=== PATIENT | male | born 1960 | race Caucasian/White ===

== ENCOUNTER 2018-09-02 08:11 | Inpatient (IN) | payer OTHER ==
--- OUTSIDE RECORDS SUMMARY | 2018-09-02 08:19 | XMS REPORT ---
:1960 Author Organization eClinicalWorks Care Team Providers Name Role Phone Nickolas Kothari Provider Role Unavailable Allergies No Known Allergies Problems Problem Type Condition Code Onset Dates Condition Status Problem MGUS (monoclonal gammopathy of D47.2 Active unknown significance) Problem Reflux K21.9 Active Problem Pure hypercholesterolemia E78.00 Active Problem Anxiety F41.9 Active Assessment Pure hypercholesterolemia E78.00 Active Problem Erectile dysfunction F52.21 Active Assessment GERD with esophagitis K21.0 Active Problem Hypertension I10 Active Problem Depression F32.9 Active Problem Seizure R56.9 Active Problem Osteoporosis M81.0 Active Problem Stroke I63.9 Active Assessment Hypertension I10 Active Assessment Depression F32.9 Active Assessment MGUS (monoclonal gammopathy of D47.2 Active unknown significance) Assessment Chronic kidney disease (CKD) stage N18.2 Active G2/A1, mildly decreased glomerular filtration rate (GFR) between 60-89 mL/min/1.73 square meter and albuminuria creatinine ratio less than 30 mg/g Problem Prostate disorder N42.9 Active Problem Stage 2 chronic kidney disease N18.2 Active Assessment Stroke I63.9 Active Problem GERD with esophagitis K21.0 Active Problem Chronic kidney disease (CKD) stage N18.2 Active G2/A1, mildly decreased glomerular filtration rate (GFR) between 60-89 mL/min/1.73 square meter and albuminuria creatinine ratio less than 30 mg/g Medications Medication Code Code Instructions Start End Status Dosage System Date Date Clonazepam [facility] 49114240616 2 MG Orally Active 1 tablet Four times a day Pantoprazole [facility] 60180157156 40 MG Orally May Inactive 1 tablet Sodium Once a day 2017 Simvastatin ND 11881613869 20 MG Orally May Active 1 tablet Once a day 2017 in the evening Probiotic [facility] 03152952916 - Orally Active not defined Esomeprazole ND 74276901484 20 MG Orally September 19, Active 1 capsule Magnesium Once a day 2017 HydrOXYzine HCl [facility] 92726770310 25 MG Orally Active 1 tablet every 8 hrs as needed Aspir-81 [facility] 98268196397 81 MG Orally May Active 1 tablet Once a day 2017 Bismuth [facility] 46009382128 262 MG/15ML July 23Jan 19, Active 30 ml as Subsalicylate Orally 2017 needed times a day Vitamin D3 [facility] 18580773626 1000 UNIT Active 1 tablet Orally Once a day Metoprolol [facility] 24945071135 50 MG Orally Active 1 tablet Tartrate Twice a day with food Baclofen [facility] 09936247232 10 MG Orally Active 1 tablet Three times a with food day or milk Results No Known Results Summary Purpose eClinicalWorks Submission
--- OUTSIDE RECORDS SUMMARY | 2018-09-02 08:19 | XMS REPORT | Continuity of Care Document ---
:1960 Author Organization Interface Problems Problem Status Onset Classification Date Comments Source Date Reported HTN - Hypertension Active Problem 07/08/2018 [facility] Hyperlipidemia Active Problem 07/08/2018 [facility] Pain of right arm Active Problem 07/08/2018 [facility] Paresthesia Active Problem 07/08/2018 [facility] Medications Medication Details Route Status Patient Ordering Order Source Instructions Provider Date Allergies, Adverse Reactions, Alerts Substance Category Reaction Severity Reaction Status Date Comments Source type Reported gabapentin Assertion Drug Active [facility] Dilantin Assertion Drug Active [facility] TEGretol Assertion Drug Active [facility] Immunizations Immunization Date Given Site Status Last Updated Comments Source Results Order Results Value Reference Date Interpretation Comments Source Name Range Vital Signs Vital Sign Value Date Comments Source Encounters Location Location Encounter Encounter Reason Attending ADM DC Status Source Details Type Number For Provider Date Date Visit Outpatient [id number] [facility] 10/01 Active [facility] [place] [facility] [id number] [facility] 11/26 Active [facility] [place] [facility] [id number] [place] 12/19 [facility] [place] [facility] [id number] [place] 12/19 12/19 [facility] [place] Procedures Procedure Code Date Perfomer Comments Source
--- OUTSIDE RECORDS SUMMARY | 2018-09-02 08:19 | XMS REPORT ---
:1960 Author Organization eClinicalWorks Care Team Providers Name Role Phone Nickolas Kothari Provider Role Unavailable Allergies, Adverse Reactions, Alerts Substance Reaction Event Type Tegretol full systemic fungal infection Drug Allergy Neurontin hives,rashes,itching Drug Allergy Methotrexate wiped out blood cells with 1 week Drug Allergy Dilantin hives,rashes,itching Drug Allergy Problems Problem Type Condition Code Onset Dates Condition Status Problem MGUS (monoclonal gammopathy of D47.2 Active unknown significance) Problem Reflux K21.9 Active Problem Pure hypercholesterolemia E78.00 Active Problem Anxiety F41.9 Active Problem Erectile dysfunction F52.21 Active Problem Hypertension I10 Active Problem Depression F32.9 Active Problem Seizure R56.9 Active Problem Osteoporosis M81.0 Active Problem Stroke I63.9 Active Problem Prostate disorder N42.9 Active Problem Stage 2 chronic kidney disease N18.2 Active Problem GERD with esophagitis K21.0 Active Assessment Medicare annual wellness visit, Z00.00 Active initial Problem Chronic kidney disease (CKD) stage N18.2 Active G2/A1, mildly decreased glomerular filtration rate (GFR) between 60-89 mL/min/1.73 square meter and albuminuria creatinine ratio less than 30 mg/g Medications Medication Code Code Instructions Start End Status Dosage System Date Date Baclofen [facility] 63352307852 10 MG Orally Active 1 tablet Three times a with food day or milk Pantoprazole [facility] 22706987800 40 MG Orally May Active 1 tablet Sodium Once a day 2017 Aspir-81 [facility] 82491391064 81 MG Orally May Active 1 tablet Once a day 2017 Vitamin D3 [facility] 66994922269 1000 UNIT Active 1 tablet Orally Once a day Metoprolol [facility] 41245311466 50 MG Orally Active 1 tablet Tartrate Twice a day with food Probiotic [facility] 51455961252 - Orally Active not defined Simvastatin [facility] 98243712607 20 MG Orally May Active 1 tablet Once a day 2017 in the evening Bismuth [facility] 65641448223 262 MG/15ML July 23Jan 19, Active 30 ml as Subsalicylate Orally 2017 needed times a day Clonazepam [facility] 42754516508 2 MG Orally Active 1 tablet Four times a day Results No Known Results Summary Purpose eClinicalWorks Submission
--- OUTSIDE RECORDS SUMMARY | 2018-09-02 08:20 | XMS REPORT ---
[...] Condition Code Onset Dates Condition Status Problem Hypertension I10 Active Problem Stage 2 chronic kidney disease N18.2 Active Problem Prostate disorder N42.9 Active Problem Seizure R56.9 Active Assessment Chronic pain disorder G89.4 Active Problem Reflux K21.9 Active Problem Chronic pain disorder G89.4 Active Problem Chronic kidney disease (CKD) stage N18.2 Active G2/A1, mildly decreased glomerular filtration rate (GFR) between 60-89 mL/min/1.73 square meter and albuminuria creatinine ratio less than 30 mg/g Problem GERD with esophagitis K21.0 Active Problem Pure hypercholesterolemia E78.00 Active Problem MGUS (monoclonal gammopathy of D47.2 Active unknown significance) Assessment Stroke I63.9 Active Assessment Urinary retention R33.9 Active Assessment Prostate disorder N42.9 Active Assessment Chronic kidney disease (CKD) stage N18.2 Active G2/A1, mildly decreased glomerular filtration rate (GFR) between 60-89 mL/min/1.73 square meter and albuminuria creatinine ratio less than 30 mg/g Problem Stroke I63.9 Active Problem Osteoporosis M81.0 Active Problem Erectile dysfunction F52.21 Active Problem Depression F32.9 Active Problem Anxiety F41.9 Active Medications Medication Code Code Instructions Start End Status Dosage System Date Vitamin D3 [facility] 68257330650 1000 UNIT Active 1 tablet Orally Once a day Baclofen ND 33312141729 10 MG Orally Sept Active 1 tablet with Three times a 23, food or milk 2017 Esomeprazole ND 63264415915 20 MG Orally September Active 1 capsule Magnesium Once a day 2017 Bismuth [facility] 55901348537 262 MG/15ML July 23Jan Active 30 ml as Subsalicylate Orally Four 2017 04, needed times a day 2017 Probiotic [facility] 39786034674 - Orally Active not defined Bacitracin [facility] 21210579373 500 UNIT/GM September Active 1 application Externally Once 10, to affected a day 2018 area Oxycodone HCl [facility] 65807909368 10 MG Orally Active 1 tablet as every 6 hrs needed HydrOXYzine HCl [facility] 65584202080 25 MG Orally Active 1 tablet as every 8 hrs needed Metoprolol [facility] 30197360751 25 MG Orally September Active 1 tablet with Tartrate Twice a day , 2017 Aspir-81 [facility] 54596810311 81 MG Orally May Active 1 tablet Once a day 2017 Omeprazole [facility] 25573939227 20 MG Orally September Active 1 tablet Magnesium Once a day 2017 Clonazepam [facility] 52921959998 2 MG Orally Active 1 tablet Four times a day Simvastatin [facility] 11412727799 20 MG Orally May Active 1 tablet in Once a day , the evening 2017 Results No Known Results Summary Purpose eClinicalWorks Submission
--- OUTSIDE RECORDS SUMMARY | 2018-09-02 08:20 | XMS REPORT ---
:1960 Author Organization eClinicalWorks Care Team Providers Name Role Phone Elida Nini Provider Role Unavailable Allergies No Known Allergies Problems Problem Type Condition Code Onset Dates Condition Status Problem Reflux K21.9 Active Problem Depression F32.9 Active Problem Seizure R56.9 Active Problem Chronic pain disorder G89.4 Active Problem Hypertension I10 Active Problem Bladder spasm N32.89 Active Problem Osteoporosis M81.0 Active Problem Stroke I63.9 Active Problem Anxiety F41.9 Active Problem Erectile dysfunction F52.21 Active Problem GERD with esophagitis K21.0 Active Problem Chronic kidney disease (CKD) stage N18.2 Active G2/A1, mildly decreased glomerular filtration rate (GFR) between 60-89 mL/min/1.73 square meter and albuminuria creatinine ratio less than 30 mg/g Problem Prostate disorder N42.9 Active Problem MGUS (monoclonal gammopathy of D47.2 Active unknown significance) Problem Stage 2 chronic kidney disease N18.2 Active Problem Pure hypercholesterolemia E78.00 Active Medications No Known Medications Results No Known Results Summary Purpose [employer] Submission
--- OUTSIDE RECORDS SUMMARY | 2018-09-02 08:20 | XMS REPORT ---
:1960 Author Organization eClinicalWorks Care Team Providers Name Role Phone Nini Marrero Provider Role Unavailable Allergies No Known Allergies Problems Problem Type Condition Code Onset Dates Condition Status Problem Reflux K21.9 Active Problem Depression F32.9 Active Problem Seizure R56.9 Active Problem Chronic pain disorder G89.4 Active Problem Hypertension I10 Active Problem Bladder spasm N32.89 Active Problem Osteoporosis M81.0 Active Problem Stroke I63.9 Active Problem Anxiety F41.9 Active Problem Erectile dysfunction F52.21 Active Assessment Establishing care with new doctor, Z76.89 Active encounter for Problem GERD with esophagitis K21.0 Active Problem Chronic kidney disease (CKD) stage N18.2 Active G2/A1, mildly decreased glomerular filtration rate (GFR) between 60-89 mL/min/1.73 square meter and albuminuria creatinine ratio less than 30 mg/g Problem Prostate disorder N42.9 Active Problem MGUS (monoclonal gammopathy of D47.2 Active unknown significance) Problem Stage 2 chronic kidney disease N18.2 Active Problem Pure hypercholesterolemia E78.00 Active Medications Medication Code System Code Instructions Start End Date Status Dosage Date Baclofen [facility] 05279506920 10 MG Orally Four September 15, Active 1 tablet times a day 2019 with food or milk Results No Known Results Summary Purpose eClinicalWorks Submission
--- OUTSIDE RECORDS SUMMARY | 2018-09-02 08:20 | XMS REPORT ---
:1960 Author Organization eClinicalWorks Care Team Providers Name Role Phone Nini Marrero Provider Role Unavailable Allergies, Adverse Reactions, Alerts [...] with new doctor, Z76.89 Active encounter for Assessment Bladder spasm N32.89 Active Problem GERD with esophagitis K21.0 Active [...] Pure hypercholesterolemia E78.00 Active Medications Medication Code Code Instructions Start End Status Dosage System Date Date Baclofen ND 54184679314 10 MG Orally Dec 29, Active 1 tablet Four times a 2017 with food day or milk Omeprazole ND 50860308787 20 MG Orally October 01, Active 1 tablet Magnesium Once a day 2017 [place]ismuth ND 50159743765 262 MG/15ML July 23, Jan 19, Active 30 ml as Subsalicylate Orally 2017 needed times a day Vitamin D3 ND 17910043702 1000 UNIT Active 1 tablet Orally Once a day Oxycodone HCl ND 70490283294 10 MG Orally Active 1 tablet every 6 hrs as needed Simvastatin ND 25958960157 20 MG Orally Active 1 tablet Once a day in the evening Aspir-81 [facility] 05849741260 81 MG Orally May Active 1 tablet Once a day 2017 Probiotic [facility] 63234292213 - Orally Active not defined Clonazepam [facility] 22094041957 2 MG Orally Active 1 tablet Once a day Metoprolol [facility] 74762896950 25 MG Orally September 21, Active 1 tablet Tartrate Twice a day 2017 with food HydrOXYzine HCl [facility] 67499674597 25 MG Orally Active 1 tablet every 8 hrs as needed Results Name Result Date Reference Range Unit Abnormality Flag PVR ----PVR 0 [id number] Summary Purpose eClinicalWorks Submission
--- OUTSIDE RECORDS SUMMARY | 2018-09-02 08:20 | XMS REPORT ---
[...] Start End Status Dosage System Date Date Bacitracin [facility] 81499397013 500 UNIT/GM September 24, Active 1 application Externally Once 2018 to affected a day area Results No Known Results Summary Purpose eClinicalWorks Submission
--- OUTSIDE RECORDS SUMMARY | 2018-09-02 08:20 | XMS REPORT ---
[...] Medications Results No Known Results Summary Purpose [employer] Submission
--- OUTSIDE RECORDS SUMMARY | 2018-09-02 08:20 | XMS REPORT ---
[...] Medications Medication Code Code Instructions Start End Date Status Dosage System Date Omeprazole [facility] 70279943791 20 MG Orally October 01, Active 1 tablet Magnesium Once a day 2018 Results No Known Results Summary Purpose eClinicalWorks Submission
--- OUTSIDE RECORDS SUMMARY | 2018-09-02 08:20 | XMS REPORT ---
[...] Start End Status Dosage System Date Date Mupirocin [facility] 57083620794 2 % Externally September 21September Active 1 application Three times a 2018 12, to affected day 2018 area Bacitracin ND 56007583661 500 UNIT/GM September 24 1 application Externally Once 2018 to affected a day area Results No Known Results Summary Purpose eClinicalWorks Submission
--- OUTSIDE RECORDS SUMMARY | 2018-09-02 08:20 | XMS REPORT ---
:1960 Author Organization eClinicalWorks Care Team Providers Name Role Phone Antonio, Na Provider Role Unavailable Allergies No Known Allergies [...] Start End Status Dosage System Date Date Omeprazole [facility] 52798348131 40 MG Orally September 21, Active 1 capsule Once a day 2017 Metoprolol ND 62553368174 25 MG Orally September 21, Active 1 tablet with Tartrate Twice a day 2017 food Mupirocin ND 95066122244 2 % Externally September 21September Active 1 application Three times a 2018 , to 2018 area Metoprolol ND 35248531836 50 MG Orally Inactive 1 tablet with Tartrate Twice a day food Results No Known Results Summary Purpose eClinicalWorks Submission
--- OUTSIDE RECORDS SUMMARY | 2018-09-02 08:20 | XMS REPORT ---
[...] creatinine ratio less than 30 mg/g Medications No Known Medications Results No Known Results Summary Purpose [employer] Submission
--- OUTSIDE RECORDS SUMMARY | 2018-09-02 08:21 | XMS REPORT ---
[...] Start End Date Status Dosage System Date Simvastatin [facility] 64992112298 20 MG Orally Active 1 tablet in Once a day the evening Results No Known Results Summary Purpose eClinicalWorks Submission
--- OUTSIDE RECORDS SUMMARY | 2018-09-02 08:21 | XMS REPORT ---
[...] Start End Date Status Dosage System Date Metoprolol [facility] 53353478930 25 MG Orally September 21, Active 1 tablet Tartrate once a day 2017 with food Results No Known Results Summary Purpose eClinicalWorks Submission
--- OUTSIDE RECORDS SUMMARY | 2018-09-02 08:21 | XMS REPORT ---
[...] End Date Status Dosage System Date Metoprolol [facility] 10492732856 25 MG Orally Active 1 tablet Tartrate Twice a day with food Results No Known Results Summary Purpose eClinicalWorks Submission
[2018-09-02 09:02] LABS: Absolute Lymphocytes (CBC) 0.4 K/uL (0.7-4.9); Basophils % 0.1 % (0-1.3); Hematocrit 39.7 % (39.6-49.0); Lymphocytes % 2.5 % (15.3-44.8); MPV 8.6 fL (7.6-11.3); Monocytes % 3.3 % (3.3-12.3); RBC Red Blood Cell Count 4.15 M/uL (4.33-5.43)
[2018-09-02 09:25] LABS: ALT/SGPT 31 U/L (12-78); AST/SGOT 146 U/L (15-37); Albumin 3.9 g/dL (3.4-5.0); Alkaline Phosphatase 61 U/L (45-117); BUN Blood Urea Nitrogen 12 mg/dL (7-18); Bicarbonate 30 mmol/L (21-32); Bilirubin Direct 0.2 mg/dL (0-0.2); Bilirubin Total 0.7 mg/dL (0.2-1.0); Glucose Level 120 mg/dL (74-106); Potassium 4.4 mmol/L (3.5-5.1); Protein, Total 7.5 g/dL (6.4-8.2); Sodium Level 128 mmol/L (136-145)
[2018-09-02 09:31] LABS: Protime INR 0.98
[2018-09-02 09:42] LABS: Platelet Estimate ADEQ; Urine White Blood Cell Casts OK
[2018-09-02 09:43] LABS: Blood Morphology Comment NOT SEEN (NOT SEEN)
[2018-09-02 10:22] LABS: Barbiturates NEGATIVE (NEGATIVE); Benzodiazepines POSITIVE (NEGATIVE); Cocaine NEGATIVE (NEGATIVE); METHAMPHETAM NEGATIVE (NEGATIVE); Methadone NEGATIVE (NEGATIVE); Opiates POSITIVE (NEGATIVE); Phencyclidine NEGATIVE (NEGATIVE); THC Cannibis POSITIVE (NEGATIVE)
[2018-09-02 10:23] LABS: Urine Blood 2+ (NEG); Urine Glucose NEGATIVE (NEG); Urine Protein 1+ (NEG); Urine pH 6.5 (5.0-7.0)
[2018-09-02] MEDS ORDERED: NALOXONE 0.4 MG/ML VIAL ONE ×2 (11:41→14:55)
--- NOTE | 2018-09-02 12:10 | EKG ---
Test Date: 2018-09-02 Test Time: 08:53:54 [employer] Tile Setter: KIRSTIE MEASUREMENT RESULTS: Intervals: Rate: 67 AR: 150 QRSD: 90 QT: 390 QTc: 412 [place]: P: 40 AR: 150 QRS: 34 T: 28 INTERPRETIVE STATEMENTS: Normal sinus rhythm Normal ECG Compared to ECG 02/18/2017 02:27:28 Sinus bradycardia no longer present Prolonged QT interval no longer present Electronically Signed On 09-02-18 12:10:10 CDT by Anil Ramirez
--- NOTE | 2018-09-02 17:15 | EDPHYS ---
Physician Documentation [facility] Name: Tomi Sharp Age: 57 yrs Sex: Male : 1960 Arrival Date: 09/02/2018 Time: 08:14 Bed 7 Private MD: ED Physician Teofilo Cohen HPI: 09/02 08:44 This 57 yrs old Male presents to ER via EMS with complaints of Overdose. kdr 08:44 The patient presents to the emergency department after a known overdose, that was kdr intentional. Context: Method: the patient has a confirmed or suspected ingestion, of narcotics, 50+ Dilaudid (4 mg) at 18:00 yesterday, the OD/poisoning occurred at at home, and was witnessed no one, Psychiatric history: none, Previous OD/poisoning history: It is unknown if the patient has had similar previous episodes. Associated signs and symptoms: The patient has no apparent associated signs or symptoms, Pertinent positives: The pertinet's roommate stated that he was shallow breathing. Severity of symptoms: At their worst the symptoms were mild in the emergency department the symptoms have improved moderately. It is unknown whether or not the patient has had similar symptoms in the past. The patient has been recently seen by a physician: the patient's primary care provider, His pain management MD yesterday who gave him an Rx for 50+ Dilaudid . Historical: - Allergies: 08:33 Dilantin; ss 08:33 METHOTREXATE AND DERIVATIVES; ss 08:33 Neurontin; ss 08:33 Tegretol; ss - PMHx: 08:33 CVA; Hypertension; Seizures; stage 3 renal disease; TIA; ss 08:38 Chronic pain; Enlarged prostate; aa5 - PSHx: 08:33 heart cath; ss - Immunization history:: Adult Immunizations unknown. - Social history:: Smoking status: Patient/guardian denies using tobacco, Patient/guardian denies using alcohol. - Ebola Screening: : Patient denies exposure to infectious person Patient denies travel to an Ebola-affected area in the 21 days before illness onset. ROS: 08:44 Constitutional: Negative for fever, chills, and weight loss, Eyes: Negative for injury, kdr pain, redness, and discharge, ENT: Negative for injury, pain, and discharge, Neck: Negative for injury, pain, and swelling, Cardiovascular: Negative for chest pain, palpitations, and edema, Respiratory: Negative for shortness of breath, cough, wheezing, and pleuritic chest pain, Abdomen/GI: Negative for abdominal pain, nausea, vomiting, diarrhea, and constipation, Back: Negative for injury and pain, : Negative for injury, bleeding, discharge, and swelling, MS/Extremity: Negative for injury and deformity, Skin: Negative for injury, rash, and discoloration, Neuro: Negative for headache, weakness, numbness, tingling, and seizure activity. Allergy/Immunology: Negative for hives, rash, and allergies, Endocrine: Negative for neck swelling, polydipsia, polyuria, polyphagia, and marked weight changes, Hematologic/Lymphatic: Negative for swollen nodes, abnormal bleeding, and unusual bruising. 08:44 Psych: Positive for Ingestion of Dilaudid . Exam: 08:44 Constitutional: This is a well developed, well nourished patient who is awake, alert, kdr and in no acute distress. Head/Face: Normocephalic, atraumatic. Eyes: Pupils equal round and reactive to light, extra-ocular motions intact. Lids and lashes normal. Conjunctiva and sclera are non-icteric and not injected. Cornea within normal limits. Periorbital areas with no swelling, redness, or edema. Neck: Trachea midline, no thyromegaly or masses palpated, and no cervical lymphadenopathy. Supple, full range of motion without nuchal rigidity, or vertebral point tenderness. No Meningismus. Chest/axilla: Normal chest wall appearance and motion. Nontender with no deformity. No lesions are appreciated. Cardiovascular: Regular rate and rhythm with a normal S1 and S2. No gallops, murmurs, or rubs. Normal PMI, no JVD. No pulse deficits. Respiratory: Lungs have equal breath sounds bilaterally, clear to auscultation and percussion. No rales, rhonchi or wheezes noted. No increased work of breathing, no retractions or nasal flaring. Abdomen/GI: Soft, non-tender, with normal bowel sounds. No distension or tympany. No guarding or rebound. No evidence of tenderness throughout. Back: No spinal tenderness. No costovertebral tenderness. Full range of motion. Skin: Warm, dry with normal turgor. Normal color with no rashes, no lesions, and no evidence of cellulitis. MS/ Extremity: Pulses equal, no cyanosis. Neurovascular intact. Full, normal range of motion. Neuro: Awake and alert, GCS 15, oriented to person, place, time, and situation. Cranial nerves II-XII grossly intact. Motor strength 5/5 in all extremities. Sensory grossly intact. Cerebellar exam normal. Normal gait. Psych: Awake, alert, with orientation to person, place and time. Behavior, mood, and affect are within normal limits. 08:44 Psych: Denies SI/HI states he was only trying to get pain relief. Vital Signs: 08:33 BP 91 / 67; Pulse 70; Resp 16; Temp 97.4(O); Pulse Ox 92% on R/A; Weight 81.65 kg; ss Height 5 ft. 11 in. (180.34 cm); Pain 0/10; 08:48 BP 101 / 72; Pulse 66; Resp 14 S; Pulse Ox 97% on 2 lpm NC; Pain 0/10; aa5 09:00 BP 91 / 70; Pulse 67; Resp 16 S; Pulse Ox 96% on 2 lpm NC; aa5 09:15 BP 103 / 67; Pulse 67; Resp 16 S; Pulse Ox 96% on 2 lpm NC; aa5 09:35 BP 102 / 69; Pulse 69; Resp 14 S; Pulse Ox 98% on 2 lpm NC; aa5 09:45 BP 120 / 73; Pulse 71; Resp 16 S; Pulse Ox 97% on 2 lpm NC; aa5 10:00 BP 123 / 78; Pulse 70; Resp 14 S; Pulse Ox 97% on 2 lpm NC; aa5 10:15 BP 127 / 72; Pulse 70; Resp 16 S; Pulse Ox 97% on 2 lpm NC; aa5 10:30 BP 122 / 68; Pulse 70; Resp 12 S; Pulse Ox 97% on 2 lpm NC; aa5 10:45 BP 121 / 77; Pulse 70; Resp 12 S; Pulse Ox 96% on 2 lpm NC; aa5 11:00 BP 117 / 70; Pulse 71; Resp 12 S; Pulse Ox 97% on 2 lpm NC; aa5 11:15 BP 118 / 75; Pulse 71; Resp 10 S; Pulse Ox 97% on 2 lpm NC; aa5 11:23 Pulse 72; Resp 6 S; Pulse Ox 97% on 2 lpm NC; aa5 11:30 BP 131 / 77; Pulse 88; Resp 16 S; Pulse Ox 100% on 2 lpm NC; aa5 11:45 BP 135 / 73; Pulse 84; Resp 16 S; Pulse Ox 97% on 2 lpm NC; aa5 12:00 BP 120 / 83; Pulse 77; Resp 18 S; Temp 98.6(TE); Pulse Ox 97% on 2 lpm NC; aa5 12:15 BP 111 / 70; Pulse 73; Resp 16 S; Pulse Ox 97% on 2 lpm NC; aa5 12:30 BP 117 / 67; Pulse 78; Resp 16 S; Pulse Ox 96% on 2 lpm NC; aa5 12:45 BP 111 / 64; Pulse 72; Resp 16 S; Pulse Ox 97% on R/A; aa5 13:00 BP 108 / 64; Pulse 71; Resp 16 S; Pulse Ox 97% on 2 lpm NC; aa5 13:15 BP 104 / 62; Pulse 71; Resp 14 S; Pulse Ox 96% on 2 lpm NC; aa5 13:30 BP 112 / 73; Pulse 69; Resp 14 S; Pulse Ox 96% on 2 lpm NC; aa5 13:45 BP 90 / 63; Pulse 66; Resp 14 S; Pulse Ox 96% on 2 lpm NC; aa5 14:00 BP 97 / 64; Pulse 66; Resp 16 S; Pulse Ox 94% on 2 lpm NC; aa5 14:40 BP 97 / 63; Pulse 68; Resp 6 S; Pulse Ox 90% on 2 lpm NC; aa5 14:42 BP 116 / 73; Pulse 70; Resp 14 S; Pulse Ox 97% on 2 lpm NC; aa5 15:49 BP 102 / 69; Pulse 68; Resp 8 S; Pulse Ox 92% on 2 lpm NC; aa5 15:52 BP 111 / 63; Pulse 68; Resp 12 S; Pulse Ox 96% on 2 lpm NC; aa5 16:15 BP 96 / 68; Pulse 66; Resp 10 S; Pulse Ox 93% on 2 lpm NC; aa5 16:15 Resp 16 S; Pulse Ox 97% on 2 lpm NC; aa5 16:45 BP 120 / 66; Pulse 69; Resp 14 S; Pulse Ox 97% on 2 lpm NC; aa5 17:05 Pulse Ox 85% on R/A; aa5 17:05 Pulse Ox 95% on 2 lpm NC; aa5 17:15 BP 110 / 73; Pulse 72; Resp 16 S; Temp 98.9(TE); Pulse Ox 99% on 2 lpm NC; aa5 17:30 BP 119 / 59; Pulse 68; Resp 16 S; Pulse Ox 96% on 2 lpm NC; aa5 17:55 BP 98 / 68; Pulse 63; Resp 16 S; Pulse Ox 97% on 2 lpm NC; aa5 18:30 BP 107 / 65; Pulse 65; Resp 16 S; Pulse Ox 96% on 2 lpm NC; Pain 0/10; aa5 08:33 Body Mass Index 25.10 (81.65 kg, 180.34 cm) ss MDM: 08:44 Data reviewed: vital signs, nurses notes, lab test result(s). Counseling: I had a kdr detailed discussion with the patient and/or guardian regarding: the historical points, exam findings, and any diagnostic results supporting the discharge/admit diagnosis, lab results, the need for outpatient follow up. 17:14 Patient medically screened. kdr 09/02 08:25 Order name: Acetaminophen kdr 09/02 08:25 Order name: Basic Metabolic Panel; Complete Time: 10:18 kdr 09/02 08:25 Order name: CBC with Diff; Complete Time: 10:18 kdr 09/02 08:25 Order name: ETOH Level; Complete Time: 10:18 kdr 09/02 08:25 Order name: Hepatic Function; Complete Time: 10:18 kdr 09/02 08:25 Order name: PT-INR; Complete Time: 10:18 kdr 09/02 08:25 Order name: Ptt, Activated; Complete Time: 10:18 kdr 09/02 08:25 Order name: Salicylate; Complete Time: 10:18 kdr 09/02 08:25 Order name: Urine Drug Screen; Complete Time: 10:56 kdr 09/02 08:27 Order name: Acetaminophen Level; Complete Time: 10:18 EDMS 09/02 09:22 Order name: CBC Smear Scan; Complete Time: 10:18 EDMS 09/02 09:42 Order name: Urine Dipstick--Ancillary (enter results); Complete Time: 10:56 bd 09/02 17:17 Order name: CBC with Diff kdr 06/18 17:17 Order name: Chem 7 kdr 09/02 08:25 Order name: EKG; Complete Time: 08:27 kdr 09/02 08:25 Order name: EKG - Nurse/Tech; Complete Time: 08:53 kdr 09/02 08:25 Order name: IV Saline Lock; Complete Time: 08:53 kdr 09/02 08:25 Order name: Labs collected and sent; Complete Time: 08:53 kdr 09/02 08:25 Order name: Urine Dipstick-Ancillary (obtain specimen); Complete Time: 09:36 kdr 09/02 17:16 Order name: CT Head Brain wo Cont; Complete Time: 18:23 kdr 09/02 17:18 Order name: CXR XRAY; Complete Time: 18:23 kdr 09/02 18:22 Order name: Blood Culture Adult (2) aa5 09/02 18:27 Order name: Procalcitonin kdr 09/02 18:27 Order name: Lactate kdr Administered Medications: 11:27 Drug: NARcan 0.2 mg Route: IVP; Site: right antecubital; aa5 11:27 Follow up: VO received at 1126, not 1129. aa5 11:29 Follow up: Response: No adverse reaction; See nurse's noted for details aa5 11:27 Drug: NS 0.9% 500 ml Route: IV; Rate: bolus; Site: right antecubital; aa5 12:00 Follow up: IV Status: Completed infusion; IV Intake: 500ml aa5 11:29 Drug: NARcan 0.2 mg Route: IVP; Site: right antecubital; aa5 11:30 Follow up: Response: No adverse reaction; See nurse's notes to see details aa5 14:40 Drug: NARcan 0.2 mg Route: IVP; Site: right antecubital; aa5 14:42 Follow up: Response: No adverse reaction; Marked relief of symptoms aa5 15:49 Drug: NARcan 0.2 mg Route: IVP; Site: right antecubital; aa5 15:52 Follow up: Response: No adverse reaction; Marked relief of symptoms aa5 18:35 Drug: Rocephin 1 grams Route: IV; Rate: calculated rate; Site: right antecubital; ss 18:45 Follow up: Response: No adverse reaction aa5 Disposition: 06/18/19 17:14 Hospitalization ordered by Cheryl Green for Inpatient Admission. Preliminary diagnosis is Overdose. - Bed requested for Intensive Care Unit. - Status is Inpatient Admission. aa5 - Condition is Serious. - Problem is new. - Symptoms are unchanged. UTI on Admission? No Signatures: Dispatcher [employer] EDMS Teofilo Cohen MD MD [facility] Cristina Gayle RN RN aa5 Renetta Cotton RN RN ss Corrections: (The following items were deleted from the chart) 17:55 17:14 Hospitalization Ordered by Cheryl Green MD for Inpatient Admission. Preliminary ss diagnosis is Overdose. Bed requested for Intensive Care Unit. Status is Inpatient Admission. Condition is Serious. Problem is new. Symptoms are unchanged. UTI on Admission? No. kdr 18:57 17:55 09/02/2018 17:14 Hospitalization Ordered by Cheryl Green MD for Inpatient aa5 Admission. Preliminary diagnosis is Overdose. Bed requested for Intensive Care Unit. Status is Inpatient Admission. Condition is Serious. Problem is new. Symptoms are unchanged. UTI on Admission? No. ss
--- NOTE | 2018-09-02 17:15 | ER ---
Nurse's Notes [facility] Name: Tomi Sharp Age: 57 yrs Sex: Male : 1960 Arrival Date: 09/02/2018 Time: 08:14 Bed 7 Private MD: Diagnosis: Overdose Presentation: 09/02 08:26 Presenting complaint: EMS states: Room mate called 911 this morning because patient was ss difficult to arouse and stated that he was, "barely breathing." Pt reportedly took 54 tablets of Dilaudid 4 mg at 1800 yesterday evening. Pt states, "I didn't intentionally try to hurt my self, I'm not suicidal. I can't give you a good reason, but I was just fed up with all the pain I was in and wanted it to go away.". Transition of care: patient was not received from another setting of care. Onset of symptoms was September 01, 2018. Risk Assessment: Do you want to hurt yourself or someone else? Patient reports no desire to harm self or others. Initial Sepsis Screen: Does the patient meet any 2 criteria? No. Patient's initial sepsis screen is negative. Does the patient have a suspected source of infection? No. Patient's initial sepsis screen is negative. Care prior to arrival: Medication(s) given: zofran 4 mg, IV initiated. 20 GA, in the right antecubital area. 08:26 Method Of Arrival: EMS: [facility] 08:26 Acuity: PADMINI 2 ss Historical: - Allergies: 08:33 Dilantin; ss 08:33 METHOTREXATE AND DERIVATIVES; ss 08:33 Neurontin; ss 08:33 Tegretol; ss - PMHx: 08:33 CVA; Hypertension; Seizures; stage 3 renal disease; TIA; ss 08:38 Chronic pain; Enlarged prostate; aa5 - PSHx: 08:33 heart cath; ss - Immunization history:: Adult Immunizations unknown. - Social history:: Smoking status: Patient/guardian denies using tobacco, Patient/guardian denies using alcohol. - Ebola Screening: : Patient denies exposure to infectious person Patient denies travel to an Ebola-affected area in the 21 days before illness onset. Screenin:38 Abuse screen: Denies threats or abuse. Nutritional screening: No deficits noted. aa5 Tuberculosis screening: No symptoms or risk factors identified. Fall Risk No fall in past 12 months (0 pts). Secondary diagnosis (15 points) CVA, IV access (20 points). Ambulatory Aid- None/Bed Rest/Nurse Assist (0 pts). Gait- Normal/Bed Rest/Wheelchair (0 pts) Mental Status- Oriented to own ability (0 pts). Total Sánchez Fall Scale indicates Low Risk Score (25-44 pts). Fall prevention measures have been instituted. Side Rails Up X 2 Placed close to Nursing Station. Assessment: 08:38 General: Appears comfortable, Behavior is calm, cooperative. Pain: Complains of pain in aa5 epigastric area Pain currently is 0 out of 10 on a pain scale. Pain began years ago, is chronic. Neuro: Level of Consciousness is awake, alert, obeys commands, Oriented to person, place, time, situation, Choir Accompanist are equal bilaterally Moves all extremities. Speech is normal, Facial symmetry appears normal, Pupils are PERRLA. Cardiovascular: Heart tones S1 S2 present Rhythm is regular. Respiratory: Airway is patent Respiratory effort is even, unlabored, Respiratory pattern is regular, symmetrical, Breath sounds are clear bilaterally. GI: Abdomen is round non-distended, Bowel sounds present X 4 quads. Abd is soft and non tender X 4 quads. Reports nausea, Reports vomiting this morning. : Reports difficulty urinating, pt states "I have prostate problems so I always have trouble peeing". EENT: No signs and/or symptoms were reported regarding the EENT system. Derm: Skin is pink, warm \\T\\ dry. Musculoskeletal: Range of motion: intact in all extremities. 08:50 Reassessment: Spoke to poison control (Sherrie in [facility]), Case # [id number], aa5 Recommendations are as follow: Monitor for HRIS COORDINATOR depression, bradycardia, seizures, and O2 sat, administer IV fluids appropriately considering Renal disease, complete EKG, basic and toxic labs, administer supportive care, and consider administering Narcan for severe HRIS COORDINATOR depression. Recommended observation time is 24 hrs post ingestion (observe/monitor today until 1800). Dr. Cohen was notified of recommendations. . 08:50 Reassessment: Seizure precautions initiated. Pt states "I haven't had a seizure in aa5 years and I don't even take medicine for it". Pt notified of need for monitoring for seizures and initiating precautions, pt verbalized understanding. . 11:23 Reassessment: Pt is unresponsive to painful, RR 6 with snoring respirations. Skin is aa5 pink/warm/dry, O2 sat 97% [address] Cohen was notified and Dr. Cohen to bedside. . 11:29 Reassessment: Pt opened eyes after Narcan administration, pt remains drowsy, and aa5 incomprehen[address] speech noted. Dr[address] Cohen remains at bedside. . 11:30 Reassessment: Pt opened eyes and A\\T\\O x 4 after 2 nd administration of Narcan. Equal aa5 unlabored respirations, skin is pink/warm/dry. . 11:40 Reassessment: Patient is alert, oriented x 3, equal unlabored respirations, skin aa5 warm/dry/pink. Pt sitting up in bed . 12:00 Reassessment: Patient is alert, oriented x 3, equal unlabored respirations, skin aa5 warm/dry/pink. Pt sitting up in bed, offered lunch, pt states "I am not hungry" . 12:00 Reassessment: Pt notified of POC and notified of need for monitoring for a few hours aa5 per MD. Pt verbalized understanding. . 12:15 Reassessment: Pt resting in bed with eyes closed, pt easy to awaken to verbal stimuli. aa5 Pt is alert and oriented x 4. States no concerns at this time. . 12:30 Reassessment: Pt resting in bed with eyes closed, respirations even and unlabored, skin aa5 is pink/warm/dry . 13:00 Reassessment: Pt resting in bed with eyes closed, respirations even/unlabored, skin is aa5 pink/warm/dry . 13:30 Reassessment: Pt resting in bed with eyes closed, pt easy to awaken to verbal stimuli, aa5 pt is A\\T\\O x 4, equal unlabored, respirations, skin is pink/warm/dry. Remains sinus rhythm on monitor. Pt states no complaints at this time. Offered lunch, Pt states he doesn't want to eat.. 14:00 Reassessment: Pt resting in bed with eyes closed, respirations even and unlabored, skin aa5 is pink/warm/dry. . 14:40 Reassessment: Pt resting in bed with eyes closed, snoring respirations, RR 6, O2 sat aa5 90% 2 L NC, skin is pink/warm/dry. Pt difficult to arouse, pt opens eyes to painful stimuli. Dr. Cohen notified (see MAR). 14:42 Reassessment: Reassessment: Pt awake and A\\T\\O x 4, equal unlabored respirations, skin is aa5 pink/warm/dry. O2 sat now 97% 2 L NC, RR14. 15:00 Reassessment: Pt easy to awaken to verbal stimuli. Equal unlabored respirations, skin aa5 is pink/warm/dry. Pt is A\\T\\O x 4. 15:49 Reassessment: Pt resting with eyes closed, snoring respirations, RR 8, O2 sat 92% 2 L aa5 NC, pt opens eyes to verbal stimuli, pt drowsy. Dr. Cohen notified (see MAR). 16:15 Reassessment: Pt resting in bed with eyes closed, snoring respirations, RR 10, O2 sat aa5 93% 2 L NC. Pt easy to awaken to verbal stimuli. Pt now A\\T\\O x 4, pt instructed to take deep breaths and O2 sat increased to 97% 2 L NC, RR 16, equal unlabored respirations, skin is pink/warm/dry. . 17:00 Reassessment: Dr. Cohen states to attempt to ambulate pt. . aa5 17:05 Reassessment: Assisted pt to sit up in bed, O2 via NC dc'd, pt's O2 sat noted to be 85 aa5 % RA. Pt was placed back in bed, O2 being administered via NC 2 L, O2 sat increased to 95%. Bed in low position, side rails x 2, call mendieta within reach. Dr. Cohen was notified of findings and inability to ambulate pt. . 17:05 Respiratory: Breath sounds are clear bilaterally. aa5 17:25 Reassessment: Patient is alert, oriented x 3, equal unlabored respirations, skin aa5 warm/dry/pink. Dr. Green (Hospitalist) at bedside. 17:55 Reassessment: Pt resting in bed with eyes closed, pt easy to awaken to verbal stimuli. aa5 A\\T\\O x 4, Equal unlabored respirations, skin is pink/warm/dry.. 18:35 Reassessment: Patient is alert, oriented x 3, equal unlabored respirations, skin aa5 warm/dry/pink. Patient denies pain at this time. 18:35 Cardiovascular: Rhythm is sinus rhythm. aa5 Vital Signs: 08:33 BP 91 / 67; Pulse 70; Resp 16; Temp 97.4(O); Pulse Ox 92% on R/A; Weight 81.65 kg; ss Height 5 ft. 11 in. (180.34 cm); Pain 0/10; 08:48 BP 101 / 72; Pulse 66; Resp 14 S; Pulse Ox 97% on 2 lpm NC; Pain 0/10; aa5 09:00 BP 91 / 70; Pulse 67; Resp 16 S; Pulse Ox 96% on 2 lpm NC; aa5 09:15 BP 103 / 67; Pulse 67; Resp 16 S; Pulse Ox 96% on 2 lpm NC; aa5 09:35 BP 102 / 69; Pulse 69; Resp 14 S; Pulse Ox 98% on 2 lpm NC; aa5 09:45 BP 120 / 73; Pulse 71; Resp 16 S; Pulse Ox 97% on 2 lpm NC; aa5 10:00 BP 123 / 78; Pulse 70; Resp 14 S; Pulse Ox 97% on 2 lpm NC; aa5 10:15 BP 127 / 72; Pulse 70; Resp 16 S; Pulse Ox 97% on 2 lpm NC; aa5 10:30 BP 122 / 68; Pulse 70; Resp 12 S; Pulse Ox 97% on 2 lpm NC; aa5 10:45 BP 121 / 77; Pulse 70; Resp 12 S; Pulse Ox 96% on 2 lpm NC; aa5 11:00 BP 117 / 70; Pulse 71; Resp 12 S; Pulse Ox 97% on 2 lpm NC; aa5 11:15 BP 118 / 75; Pulse 71; Resp 10 S; Pulse Ox 97% on 2 lpm NC; aa5 11:23 Pulse 72; Resp 6 S; Pulse Ox 97% on 2 lpm NC; aa5 11:30 BP 131 / 77; Pulse 88; Resp 16 S; Pulse Ox 100% on 2 lpm NC; aa5 11:45 BP 135 / 73; Pulse 84; Resp 16 S; Pulse Ox 97% on 2 lpm NC; aa5 12:00 BP 120 / 83; Pulse 77; Resp 18 S; Temp 98.6(TE); Pulse Ox 97% on 2 lpm NC; aa5 12:15 BP 111 / 70; Pulse 73; Resp 16 S; Pulse Ox 97% on 2 lpm NC; aa5 12:30 BP 117 / 67; Pulse 78; Resp 16 S; Pulse Ox 96% on 2 lpm NC; aa5 12:45 BP 111 / 64; Pulse 72; Resp 16 S; Pulse Ox 97% on R/A; aa5 13:00 BP 108 / 64; Pulse 71; Resp 16 S; Pulse Ox 97% on 2 lpm NC; aa5 13:15 BP 104 / 62; Pulse 71; Resp 14 S; Pulse Ox 96% on 2 lpm NC; aa5 13:30 BP 112 / 73; Pulse 69; Resp 14 S; Pulse Ox 96% on 2 lpm NC; aa5 13:45 BP 90 / 63; Pulse 66; Resp 14 S; Pulse Ox 96% on 2 lpm NC; aa5 14:00 BP 97 / 64; Pulse 66; Resp 16 S; Pulse Ox 94% on 2 lpm NC; aa5 14:40 BP 97 / 63; Pulse 68; Resp 6 S; Pulse Ox 90% on 2 lpm NC; aa5 14:42 BP 116 / 73; Pulse 70; Resp 14 S; Pulse Ox 97% on 2 lpm NC; aa5 15:49 BP 102 / 69; Pulse 68; Resp 8 S; Pulse Ox 92% on 2 lpm NC; aa5 15:52 BP 111 / 63; Pulse 68; Resp 12 S; Pulse Ox 96% on 2 lpm NC; aa5 16:15 BP 96 / 68; Pulse 66; Resp 10 S; Pulse Ox 93% on 2 lpm NC; aa5 16:15 Resp 16 S; Pulse Ox 97% on 2 lpm NC; aa5 16:45 BP 120 / 66; Pulse 69; Resp 14 S; Pulse Ox 97% on 2 lpm NC; aa5 17:05 Pulse Ox 85% on R/A; aa5 17:05 Pulse Ox 95% on 2 lpm NC; aa5 17:15 BP 110 / 73; Pulse 72; Resp 16 S; Temp 98.9(TE); Pulse Ox 99% on 2 lpm NC; aa5 17:30 BP 119 / 59; Pulse 68; Resp 16 S; Pulse Ox 96% on 2 lpm NC; aa5 17:55 BP 98 / 68; Pulse 63; Resp 16 S; Pulse Ox 97% on 2 lpm NC; aa5 18:30 BP 107 / 65; Pulse 65; Resp 16 S; Pulse Ox 96% on 2 lpm NC; Pain 0/10; aa5 08:33 Body Mass Index 25.10 (81.65 kg, 180.34 cm) ED Course: 08:14 Patient arrived in ED. bd 08:25 Teofilo Cohen MD is Attending Physician. kdr 08:32 Triage completed. ss 08:33 Ana Cristina Gayle, ZAK is Primary Nurse. aa5 08:33 Arm band placed on right wrist. ss 08:38 Patient has correct armband on for positive identification. Placed in gown. Bed in low aa5 position. Call light in reach. Side rails up X2. cardiac monitor technician on. Pulse ox on. NIBP on. 09:26 EKG done, by photonics engineering technician. reviewed by Teofilo Cohen MD. dt2 09:36 Maintain EMS IV. Dressing intact. Good blood return noted. Site clean \\T\\ dry. Gauge \\T\\ ms site: 20 right ac. IV is intact, with fluids infusing freely, Flushed. 09:37 Straight cath inserted, using sterile technique, 16 Fr. Specimen obtained. Returned ms clear yellow urine. Patient tolerated well. 14:07 No provider procedures requiring assistance completed. aa5 17:10 Cheryl Green MD is Hospitalizing Provider. kdr 17:45 CT Head Brain wo Cont In Process Unspecified. EDMS 17:46 CXR XRAY In Process Unspecified. EDMS 18:25 First set of blood cultures drawn by me. Inserted saline lock: 20 gauge in right hand, aa5 using aseptic technique. 18:35 Second set of blood cultures drawn by me. Inserted saline lock: 20 gauge in left wrist, aa5 using aseptic technique. 18:38 Patient admitted, IV remains in place. aa5 Administered Medications: 11:27 Drug: NARcan 0.2 mg Route: IVP; Site: right antecubital; aa5 11:27 Follow up: VO received at 1126, not 1129. aa5 11:29 Follow up: Response: No adverse reaction; See nurse's noted for details aa5 11:27 Drug: NS 0.9% 500 ml Route: IV; Rate: bolus; Site: right antecubital; aa5 12:00 Follow up: IV Status: Completed infusion; IV Intake: 500ml aa5 11:29 Drug: NARcan 0.2 mg Route: IVP; Site: right antecubital; aa5 11:30 Follow up: Response: No adverse reaction; See nurse's notes to see details aa5 14:40 Drug: NARcan 0.2 mg Route: IVP; Site: right antecubital; aa5 14:42 Follow up: Response: No adverse reaction; Marked relief of symptoms aa5 15:49 Drug: NARcan 0.2 mg Route: IVP; Site: right antecubital; aa5 15:52 Follow up: Response: No adverse reaction; Marked relief of symptoms aa5 18:35 Drug: Rocephin 1 grams Route: IV; Rate: calculated rate; Site: right antecubital; ss 18:45 Follow up: Response: No adverse reaction aa5 Intake: 12:00 IV: 500ml; Total: 500ml. aa5 Outcome: 17:14 Decision to Hospitalize by Provider. kdr 18:35 Admitted to ICU accompanied by nurse, accompanied by tech, via stretcher, with oxygen, aa5 on monitor, with chart, Report called to ZAK Cazares (at 1820) 18:35 Condition: stable 18:35 Instructed on the need for admit, Demonstrated understanding of instructions. 18:38 Patient left the ED. aa5 Signatures: Dispatcher [employer] EDMS Astrid Turner Kevin, MD MD kdr Solis, Maria ms Calderon, Audri, RN RN aa5 Renetta Cotton RN RN ss Teague, Danielle dt2 Corrections: (The following items were deleted from the chart) 10:38 08:26 Care prior to arrival: None. ss ss 11:31 08:26 Acuity: PADMINI 3 ss ss 16:35 15:49 Reassessment: Pt resting with eyes closed, RR 8, O2 sat 92% 2 L NC, pt opens eyes aa5 to verbal stimuli, pt drowsy. . aa5 16:37 15:49 Reassessment: Pt resting with eyes closed, RR 8, O2 sat 92% 2 L NC, pt opens eyes aa5 to verbal stimuli, pt drowsy. Dr. Cohen notified (see MAR). aa5 18:03 17:55 Reassessment: Pt resting in bed with eyes closed, pt easy to awaken to verbal aa5 stimuli. Equal unlabored respirations, skin is pink/warm/dry. . aa5 19:14 18:57 Patient left the ED. aa5 aa5 19:16 08:38 Respiratory: Airway is patent Respiratory effort is even, unlabored, Respiratory aa5 pattern is regular, symmetrical, aa5
--- NOTE | 2018-09-02 17:52 | P.HP ---
Certification for Inpatient Patient admitted to: Inpatient With expected LOS: >2 Midnights Practitioner: I am a practitioner with admitting privileges, knowledge of patient current condition, hospital course, and medical plan of care. Services: Services provided to patient in accordance with Admission requirements found in Title 42 Section 412.3 of the Code of Federal Regulations Patient History Date of Service: 09/02/18 Reason for admission: AMS, overdose History of Present Illness: This is a 57 yr old male with prior history of CVA, seizures and HTN who was brought in by EMS for AMS due to overdose of dilaudid. Patient unable to really give me history due to confusion? unsure of baseline but he kept on repeating himself and was not able to remember conversation. Patient with tangential conversation. Per chart review and ER documentation, patient took #54 pills of Dilaudid last night at 18:00. They stated that it was unintentional because he was tired of dealing with the pain. He was brought to the ED and per poison control, he should be watched until 6 pm. Even after fluids and narcan x 4, patient continued to have some apneic episodes and became hard to arouse. This improved with narcan but not resolve completely. When he is awake, he is AAOx4 but still seems confused on what really happened and why he is in the hospital. At the time of my exam, patient was AAOx4 but confused as noted above. He was hemodynamically stable He will need ICU admission due to his apneic/unresponsive episodes that are requiring narcan. Allergies gabapentin [From Neurontin] Allergy (Severe, Verified 01/07/14 22:23) Itching/Hives/Rash phenytoin sodium [From Dilantin] Allergy (Severe, Verified 01/07/14 22:23) Itching/Hives/Rash phenytoin sodium extended [From Dilantin] Allergy (Severe, Verified 01/07/14 22: 23) Itching/Hives/Rash carbamazepine [From Tegretol] Adverse Reaction (Severe, Verified 01/07/14 22:23) Itching clonazepam [From Klonopin] Adverse Reaction (Verified 02/24/17 20:37) Anaphylaxis METHOTREXATE Allergy (Intermediate, Uncoded 01/30/17 17:51) Unknown Dilantin Infatabs Allergy (Uncoded 09/16/14 14:05) Unknown METHO Allergy (Uncoded 09/25/16 19:02) Unknown METHOTREXATE A Allergy (Uncoded 02/10/17 04:21) Unknown METHOTREXATE AND Allergy (Uncoded 02/18/17 04:53) Unknown Home Medications: Tamsulosin HCl [Flomax] 1 tab PO DAILY PRN 01/08/14 Aspirin [Aspirin EC 81 MG] 81 mg PO DAILY #30 tablet. 01/31/17 Atorvastatin Calcium [Lipitor] 40 mg PO BEDTIME #30 tab 01/31/17 hydrOXYzine pamoate [Hydroxyzine Pamoate] 25 mg PO BID PRN 02/25/17 Metoprolol Succinate [Toprol Xl*] 150 mg PO BID #60 tab 02/26/17 Spironolactone [Aldactone*] 25 mg PO BID #60 tab 02/26/17 Valsartan [Diovan*] 160 mg PO BID #60 tab 02/26/17 metroNIDAZOLE [Flagyl*] 500 mg PO Q8H #63 tablet 02/26/17 - Past Medical/Surgical History Diabetic: No -: Urinary retention -: Hypertension -: Seizures "in my 20s. I had TIAs also." -: TIA -: CVA "in my 20s" -: Sinus Surgery -: Oral Surgery - Family History Father -: Heart disease, Hypertension, Lung disease - Social History Alcohol use: No CD- Drugs: Yes Caffeine use: No Review of Systems 10-point ROS is otherwise unremarkable Physical Examination - Physical Exam General: In no apparent distress, Oriented x3, Confused HEENT: Atraumatic, PERRLA, Mucous membr. moist/pink, EOMI, Sclerae nonicteric Neck: Supple, 2+ carotid pulse no bruit, No LAD, Without JVD or thyroid abnormality Respiratory: Clear to auscultation bilaterally, Normal air movement Cardiovascular: Regular rate/rhythm, Normal S1 S2 Gastrointestinal: Normal bowel sounds, No tenderness Musculoskeletal: No tenderness Integumentary: No rashes Neurological: Normal speech, Normal strength at 5/5 x4 extr, Normal tone, Normal affect - Studies Laboratory Data (last 24 hrs) 09/02/18 08:45: PT 11.6, INR 0.98, APTT 26.6 09/02/18 08:45: WBC 17.6 H, Hgb 13.1 L, Hct 39.7, Plt Count 368 09/02/18 08:45: Sodium 128 L, Potassium 4.4, BUN 12, Creatinine 1.63 H, Glucose 120 H, Total Bilirubin 0.7, AST 146 H, ALT 31, Alkaline Phosphatase 61 Assessment and Plan - Problems (Diagnosis) (1) Drug overdose Current Visit: Yes Status: Acute (2) Altered mental status Onset Date: 01/08/14 Current Visit: No Status: Acute (3) Seizure disorder Current Visit: No Status: Acute (4) CVA (cerebral vascular accident) Onset Date: 02/18/17 Current Visit: No Status: Acute (5) Encephalopathy Current Visit: Yes Status: Acute (6) Leucocytosis Current Visit: Yes Status: Acute (7) CLEMENCIA (acute kidney injury) Current Visit: Yes Status: Acute (8) Hyponatremia Current Visit: Yes Status: Acute (9) Hypertension Current Visit: No Status: Acute Qualifiers: Hypertension type: essential hypertension Qualified Code(s): I10 - Essential (primary) hypertension (10) Obesity (BMI 30.0-34.9) Current Visit: No Status: Acute - Plan Admit to ICU for 1-on-1 monitoring due to apneic episodes. Narcan as needed IVF, maintenance dosing. Hold pain medications at this time. Will need to contact Girlfriend (Darlene Hernandez) to get more information. CT head and CXR pending. Leuckocytosis, could be secondary to toxic vs metabollic vs infectious. Workup pending. Will restart home medications as tolerated. DVT prophylaxis: Lovenox GI prophylaxis: None Diet: NPO, d/t AMS Disposition: Pending symptomatic improvement. Possible discharge in the next 24- 48 hrs depending on clinical improvement. - Advance Directives Does patient have a Living Will: No Does patient have a Durable POA for Healthcare: No Time Spent Managing Pts Care (In Minutes): 55
--- NOTE | 2018-09-02 17:54 | RAD REPORT ---
EXAM DESCRIPTION: CT - Head Brain Wo Cont - 09/02/2018 5:44 pm CLINICAL HISTORY: CONFUSED Headache, drowsiness COMPARISON: <Comparisons> TECHNIQUE: All CT scans are performed using dose optimization technique as appropriate and may inclu de automated exposure control or mA/KV adjustment according to patient size. FINDINGS: No intracranial hemorrhage, hydrocephalus or extra-axial fluid collection.No areas of brai n edema or evidence of midline shift. The paranasal sinuses and mastoids are clear. The calvarium is intact. IMPRESSION: No acute intracranial abnormality.
--- NOTE | 2018-09-02 17:56 | RAD REPORT ---
EXAM DESCRIPTION: RAD - Chest Single View - 09/02/2018 5:48 pm CLINICAL HISTORY: CHEST PAIN Chest pain. COMPARISON: Chest Single View dated 02/23/2017; Chest Single View dated 02/21/2017; Chest Single View dated 02/20/2017; Abdomen 1 View (KUB) dated 02/19/2017 FINDINGS: Portable technique limits examination quality. Small airspace opacity is seen in the medial right lung base most compatible with pneumonia. The hear t is normal in size. No displaced fractures. IMPRESSION: Medial right lung base pneumonia.
[2018-09-02] MEDS ORDERED: ONDANSETRON 4 MG/2 ML VIAL IV PRN (18:19)
[2018-09-02] MEDS ORDERED: CEFTRIAXONE/SWI 1gm 1 GM/10 ML SYR ONE (18:45)
[2018-09-02] MEDS: NA CHLORIDE 0.9% 1,000 ML IV SCH (19:23)
[2018-09-02 19:45] LABS: Absolute Lymphocytes (CBC) 0.7 K/uL (0.7-4.9); Basophils % 0.2 % (0-1.3); Hematocrit 37.9 % (39.6-49.0); Lymphocytes % 3.1 % (15.3-44.8); MPV 8.4 fL (7.6-11.3); Monocytes % 4.2 % (3.3-12.3); RBC Red Blood Cell Count 3.97 M/uL (4.33-5.43)
[2018-09-02] MEDS: NALOXONE HCL 2 MG/2 ML VIAL IV PRN (19:51)
[2018-09-02 20:02] LABS: Potassium 4.4 mmol/L (3.5-5.1)
[2018-09-02 20:22] LABS: Blood Morphology Comment NOT SEEN (NOT SEEN); Platelet Estimate ADEQ
[2018-09-02] MEDS: PIPER/TAZO/NS 3.375gm 3.375 GM/100 ML BAG IVPB SCH (23:19)
[2018-09-02] MEDS ORDERED: NA CHLORIDE 0.9% 100 ML ONE (23:34)
[2018-09-02] MEDS ORDERED: PIPERACIL/TAZO 3.375 GM VIAL IV ONE (23:34)
[2018-09-03] MEDS: NALOXONE HCL 2 MG/2 ML VIAL IV PRN (01:51)
[2018-09-03 04:58] LABS: Absolute Lymphocytes (CBC) 0.8 K/uL (0.7-4.9); Basophils % 0.2 % (0-1.3); Hematocrit 37.6 % (39.6-49.0); Lymphocytes % 3.7 % (15.3-44.8); MPV 8.4 fL (7.6-11.3); Monocytes % 4.8 % (3.3-12.3); RBC Red Blood Cell Count 3.96 M/uL (4.33-5.43)
[2018-09-03 05:12] LABS: Albumin 3.3 g/dL (3.4-5.0); Bilirubin Total 0.5 mg/dL (0.2-1.0); Magnesium 1.7 mg/dL (1.8-2.4); Phosphorus 3.6 mg/dL (2.5-4.9); Potassium 4.7 mmol/L (3.5-5.1); Protein, Total 7.1 g/dL (6.4-8.2)
[2018-09-03] MEDS: PIPER/TAZO/NS 3.375gm 3.375 GM/100 ML BAG IVPB SCH ×2 (05:28→16:48)
[2018-09-03] MEDS ORDERED: PIPERACIL/TAZO 3.375 GM VIAL IV ONE (05:42)
[2018-09-03] MEDS ORDERED: NA CHLORIDE 0.9% 100 ML ONE (05:42)
[2018-09-03] MEDS ORDERED: MAGNESIUM SULFATE 1 gm IVPB 1 GM/100 ML BAG IV ONE (06:00)
[2018-09-03] MEDS: TAMSULOSIN 0.4 MG SR CAP PO SCH (09:00)
[2018-09-03] MEDS: NA CHLORIDE 0.9% 1,000 ML IV SCH (09:35)
--- NOTE | 2018-09-03 15:24 | P.PN ---
Subjective Date of Service: 09/03/18 Chief Complaint: AMS, overdose Subjective: Improving Patient seen and examined at bedside. No family at bedside. Chart reviewed and case discussed with nursing staff. Patient more awake though still seems to be confused and having tangential conversation. Review of Systems 10-point ROS is otherwise unremarkable Physical Examination - Vital Signs Temperature: 98.6 F Blood Pressure: 90/56 Pulse: 83 Respirations: 10 Pulse Ox (%): 94 - Physical Exam General: Alert, In no apparent distress, Confused Neck: Supple, JVD not distended Respiratory: Clear to auscultation bilaterally, Normal air movement Cardiovascular: Regular rate/rhythm, Normal S1 S2 Gastrointestinal: Normal bowel sounds, No tenderness Neurological: Normal strength at 5/5 x4 extr, Normal tone, Abnormal speech Assessment And Plan - Current Problems (Diagnosis) (1) Encephalopathy Current Visit: Yes Status: Acute Plan: Likely secondary to drug overdose vs CVA - Continue to monitor in ICU - MRI ordered - Suicide precaution as pt with unknown intent. Now states that he did not take any pills and his roommate/Girlfriend is lying. - Narcan as needed - He will need [facility] eval once he is medically stable. (2) Drug overdose Current Visit: Yes Status: Acute Qualifiers: Encounter type: initial encounter Injury intent: undetermined intent Qualified Code(s): T50.904A - Poisoning by unspecified drugs, medicaments and biological substances, undetermined, initial encounter (3) Pneumonia Current Visit: Yes Status: Acute Plan: Likely secondary to aspiration as pt with drug overdose, confusion, and altered mentation. - Continue IV antibiotics Qualifiers: Pneumonia type: aspiration pneumonia Laterality: right Lung location: middle lobe of lung (4) Leucocytosis Current Visit: Yes Status: Acute Plan: Likely secondary to pneumonia - Improving. Continue IV antibiotics (5) CLEMENCIA (acute kidney injury) Current Visit: Yes Status: Acute Plan: Worsening creatinine. Continue IVF. If continues worsening, will consult nephrology (6) Hyponatremia Current Visit: Yes Status: Acute Plan: Improving. Continue IVF (7) CVA (cerebral vascular accident) Onset Date: 02/18/17 Current Visit: No Status: Chronic Plan: Hx of CVA. Unsure of baseline. MRI pending Qualifiers: CVA mechanism: unspecified Qualified Code(s): I63.9 - Cerebral infarction, unspecified (8) Seizure disorder Current Visit: No Status: Chronic (9) Hypertension Current Visit: No Status: Acute Plan: Continue home medications. Qualifiers: Hypertension type: essential hypertension Qualified Code(s): I10 - Essential (primary) hypertension (10) Obesity (BMI 30.0-34.9) Current Visit: No Status: Acute - Plan DVT prophylaxis: Lovenox GI prophylaxis: None Diet: NPO, d/t AMS Disposition: Pending symptomatic improvement and MR evaluation.
--- NOTE | 2018-09-03 16:59 | RAD REPORT ---
EXAM DESCRIPTION: MRI - Brain Wo Cont - 09/03/2018 4:10 pm CLINICAL HISTORY: Transient alteration of awareness COMPARISON: MRI February 2017, CT head August 2018 TECHNIQUE: Sagittal T1-weighted images were obtained along with axial PD, heavily T2-weighted and T2 -FLAIR images. Axial DWI and ADC mapping sequences were also obtained along with coronal heavily T2-w eighted images. FINDINGS: No intracranial hemorrhage, mass or acute infarction. There is no edema or shift of midlin e structures. No extra-axial fluid collections. Zuñiga-matter/white matter junction is preserved. Signa l voids are seen as a normal finding in the major intracranial vessels. Small focus of T2 signal abno rmality seen in the right frontal white matter. This is most likely a small focus of chronic ischemic change. There is no cortical edema or sulcal effacement. Ventricles are normal. No sella or supra se lla abnormality. No globe or orbital content abnormality. No tonsillar ectopia. Mastoid air cells and paranasal sinuses are clear. IMPRESSION: Negative non-contrast MRI of the Brain for acute finding. No significant change back to the 2017 MRI study.
[2018-09-03] MEDS: SUCRALFATE 1 GM TABLET PO SCH ×2 (17:27→21:37)
[2018-09-03] MEDS: METOPROLOL TAR 25 MG TAB PO SCH (21:37)
[2018-09-04] MEDS: PIPER/TAZO/NS 3.375gm 3.375 GM/100 ML BAG IVPB SCH ×3 (01:01→17:25)
[2018-09-04] MEDS: NA CHLORIDE 0.9% 1,000 ML IV SCH ×3 (01:02→23:23)
[2018-09-04] MEDS: TAMSULOSIN 0.4 MG SR CAP PO SCH (08:11)
[2018-09-04] MEDS: METOPROLOL TAR 25 MG TAB PO SCH ×2 (08:11→19:57)
[2018-09-04] MEDS: SUCRALFATE 1 GM TABLET PO SCH ×4 (08:12→19:57)
[2018-09-04 10:36] LABS: Absolute Lymphocytes (CBC) 0.5 K/uL (0.7-4.9); Basophils % 0.3 % (0-1.3); Eosinophils % 0.4 % (0-4.4); Hematocrit 33.7 % (39.6-49.0); Lymphocytes % 5.7 % (15.3-44.8); Monocytes % 7.5 % (3.3-12.3); RBC Red Blood Cell Count 3.55 M/uL (4.33-5.43)
[2018-09-04 10:52] LABS: Potassium 3.7 mmol/L (3.5-5.1)
--- NOTE | 2018-09-04 11:37 | P.PN ---
Subjective Date of Service: 09/04/18 Chief Complaint: AMS, overdose Subjective: No new changes Patient seen and examined at bedside. No family at bedside. Chart reviewed and case discussed with nursing staff. Patient more awake though still seems to be confused and having tangential conversation. Review of Systems 10-point ROS is otherwise unremarkable Physical Examination - Vital Signs Temperature: 98.6 F Blood Pressure: 144/82 Pulse: 89 Respirations: 16 Pulse Ox (%): 96 - Physical Exam General: Alert, In no apparent distress, Oriented x3 (Intermittently), Confused (Intermittently) Respiratory: Clear to auscultation bilaterally, Normal air movement Cardiovascular: Regular rate/rhythm, Normal S1 S2 Gastrointestinal: Normal bowel sounds, No tenderness Integumentary: No rashes Assessment And Plan - Current Problems (Diagnosis) (1) Encephalopathy Current Visit: Yes Status: Acute Plan: Likely secondary to drug overdose vs CVA versus chronic alcohol use - Continue to monitor in ICU - MRI negative for acute abnormality - Suicide precaution as pt with unknown intent. Now states that he did not take any pills and his roommate/Girlfriend is lying. - Narcan as needed - He will need [facility] eval once he is medically stable. - unsure of baseline. Patient does have a history of chronic alcohol use (2) Drug overdose Current Visit: Yes Status: Acute Qualifiers: Encounter type: initial encounter Injury intent: undetermined intent Qualified Code(s): T50.904A - Poisoning by unspecified drugs, medicaments and biological substances, undetermined, initial encounter (3) Pneumonia Current Visit: Yes Status: Acute Plan: Likely secondary to aspiration as pt with drug overdose, confusion, and altered mentation. - Continue IV antibiotics Qualifiers: Pneumonia type: aspiration pneumonia Laterality: right Lung location: middle lobe of lung (4) Leucocytosis Current Visit: Yes Status: Acute Plan: Likely secondary to pneumonia - resolved. Continue IV antibiotics (5) CLEMENCIA (acute kidney injury) Current Visit: Yes Status: Resolved Plan: Resolved.. Continue IVF. (6) Hyponatremia Current Visit: Yes Status: Acute Plan: Improving. Continue IVF (7) CVA (cerebral vascular accident) Onset Date: 02/18/17 Current Visit: No Status: Chronic Plan: Hx of CVA. Unsure of baseline. MRI negative for acute abnormalities. Qualifiers: CVA mechanism: unspecified Qualified Code(s): I63.9 - Cerebral infarction, unspecified (8) Seizure disorder Current Visit: No Status: Chronic (9) Hypertension Current Visit: No Status: Acute Plan: Continue home medications. Qualifiers: Hypertension type: essential hypertension Qualified Code(s): I10 - Essential (primary) hypertension (10) Obesity (BMI 30.0-34.9) Current Visit: No Status: Acute - Plan DVT prophylaxis: Lovenox GI prophylaxis: None Diet: NPO, d/t AMS Disposition: Pending symptomatic improvement and [facility] evaluation.
[2018-09-05] MEDS: PIPER/TAZO/NS 3.375gm 3.375 GM/100 ML BAG IVPB SCH ×3 (00:56→17:13)
[2018-09-05 06:04] LABS: Phosphorus 2.5 mg/dL (2.5-4.9); Potassium 3.5 mmol/L (3.5-5.1)
[2018-09-05] MEDS ORDERED: POTASSIUM 25 MEQ EFFERV TAB PO ONE (06:22)
[2018-09-05] MEDS: POTASS/SODIUM PHOSPHATE 1 PKT POWD.PACK PO SCH ×3 (06:34→11:52)
[2018-09-05] MEDS: TAMSULOSIN 0.4 MG SR CAP PO SCH (07:59)
[2018-09-05] MEDS: METOPROLOL TAR 25 MG TAB PO SCH ×2 (07:59→20:51)
[2018-09-05] MEDS: SUCRALFATE 1 GM TABLET PO SCH ×4 (08:00→20:51)
[2018-09-05] MEDS ORDERED: LORazepam 2 MG/ML VIAL IV ONE ×2 (14:05→15:06)
--- NOTE | 2018-09-05 16:29 | P.PN ---
Subjective Date of Service: 09/05/18 Chief Complaint: AMS, overdose Patient seen and examined at bedside. Caregiver at bedside. Chart reviewed and case discussed with nursing staff. This morning, patient exhibiting mutism, inhibited movement, staring, stupor, some echolalia. He also is exhibiting some posturing-same position, holding head above pillow, looking at TV even when TV turned off along with decreased blinking. Review of Systems 10-point ROS is otherwise unremarkable Physical Examination - Vital Signs Temperature: 99.3 F Blood Pressure: 150/87 Pulse: 119 Respirations: 23 Pulse Ox (%): 94 - Physical Exam General: In no apparent distress, Other (Patient displaying mutism, stupor, catalepsy and intermittent waxy flexibility.) HEENT: Atraumatic, PERRLA, EOMI Neck: Supple, JVD not distended Respiratory: Clear to auscultation bilaterally, Normal air movement Cardiovascular: Normal S1 S2, Irregular heart rate/rhythm (Tachycardic) Gastrointestinal: Normal bowel sounds, No tenderness Musculoskeletal: No tenderness Integumentary: No rashes Neurological: Abnormal speech, Abnormal tone, Abnormal affect Assessment And Plan - Current Problems (Diagnosis) (1) Catatonia Current Visit: Yes Status: Acute Plan: Differential diagnosis does include seizure (and patient with history of epilepsy) vs drug abuse effect vs secondary to underlying psychiatric disease vs underlying medical disease including infection. - MRI negative for any acute abnormalities - He is tachycardic and tachypneic. He remains afebrile. Continue to monitor vital signs - Neurology consulted - EEG ordered, pending - lorazepam challenge. Will continue benzodiazepines at this time - called patient's primary psychiatrist, Dr. Segovia in [place]. Spoke to the nurseJacqui. States that patient has a diagnoses of schizophrenia. He has not really been missing any appointments. His last appointment was in March of 2018 and his next appointment was scheduled for September 08, 2018. He is currently on clonazepam 2 mg, 1 tablet t.i.d., fluoxetine 10 mg daily. Prozac was also started at his last appointment. Unsure how many medications patient is taking or not taking. I am waiting for a psychiatrist to call me back to talk further. (2) Encephalopathy Current Visit: Yes Status: Acute Plan: Likely secondary to drug overdose vs CVA versus chronic alcohol use - Continue to monitor in ICU - MRI negative for acute abnormality - Suicide precaution as pt with unknown intent. Now states that he did not take any pills and his roommate/Girlfriend is lying. - Narcan as needed - He will need [facility] eval once he is medically stable. - unsure of baseline. Patient does have a history of chronic alcohol use (3) Drug overdose Current Visit: Yes Status: Acute Qualifiers: Encounter type: initial encounter Injury intent: undetermined intent Qualified Code(s): T50.904A - Poisoning by unspecified drugs, medicaments and biological substances, undetermined, initial encounter (4) Pneumonia Current Visit: Yes Status: Acute Plan: Likely secondary to aspiration as pt with drug overdose, confusion, and altered mentation. - Continue IV antibiotics Qualifiers: Pneumonia type: aspiration pneumonia Laterality: right Lung location: middle lobe of lung (5) Leucocytosis Current Visit: Yes Status: Resolved Plan: Likely secondary to pneumonia - resolved. Continue IV antibiotics (6) CLEMENCIA (acute kidney injury) Current Visit: Yes Status: Resolved Plan: Resolved.. Continue IVF. (7) Hyponatremia Current Visit: Yes Status: Acute Plan: Improving. Continue IVF (8) CVA (cerebral vascular accident) Onset Date: 02/18/17 Current Visit: No Status: Chronic Plan: Hx of CVA. Unsure of baseline. MRI negative for acute abnormalities. Qualifiers: CVA mechanism: unspecified Qualified Code(s): I63.9 - Cerebral infarction, unspecified (9) Seizure disorder Current Visit: No Status: Chronic (10) Hypertension Current Visit: No Status: Acute Plan: Continue home medications. Qualifiers: Hypertension type: essential hypertension Qualified Code(s): I10 - Essential (primary) hypertension (11) Obesity (BMI 30.0-34.9) Current Visit: No Status: Acute - Plan DVT prophylaxis: Lovenox GI prophylaxis: None Diet: Regular Disposition: Pending symptomatic improvement and [facility] evaluation.
[2018-09-05] MEDS ORDERED: THIAMINE 200 MG/2 ML INJ IVP ONE (17:54)
[2018-09-05] MEDS ORDERED: DIPHENHYDRAMINE 50 MG/ML VIAL IV ONE (20:53)
[2018-09-05] MEDS: NA CHLORIDE 0.9% 1,000 ML IV SCH (21:12)
[2018-09-06] MEDS: PIPER/TAZO/NS 3.375gm 3.375 GM/100 ML BAG IVPB SCH ×3 (00:21→16:59)
[2018-09-06] MEDS: NA CHLORIDE 0.9% 1,000 ML IV SCH (00:22)
[2018-09-06 05:16] LABS: Absolute Lymphocytes (CBC) 0.8 K/uL (0.7-4.9); Eosinophils % 3.2 % (0-4.4); Hematocrit 33.5 % (39.6-49.0); Lymphocytes % 14.5 % (15.3-44.8); MPV 7.5 fL (7.6-11.3); Monocytes % 14.7 % (3.3-12.3); RBC Red Blood Cell Count 3.56 M/uL (4.33-5.43)
[2018-09-06 05:31] LABS: Albumin 2.4 g/dL (3.4-5.0); Bilirubin Total 0.6 mg/dL (0.2-1.0); Phosphorus 2.7 mg/dL (2.5-4.9); Potassium 3.5 mmol/L (3.5-5.1); Protein, Total 6.4 g/dL (6.4-8.2)
--- NOTE | 2018-09-06 08:18 | RAD REPORT ---
EXAM DESCRIPTION: RAD - Chest Single View - 09/06/2018 5:56 am CLINICAL HISTORY: Pneumonia COMPARISON: September 02 TECHNIQUE: AP portable chest image was obtained 0519 hours . FINDINGS: Lung volumes are reduced compared to the prior study. Small right pleural effusion is evid ent. There is infiltrate and/ or atelectasis in the right base not significantly different from marcella rison. No new or progressive left lung field finding. Heart and vasculature are normal. No pneumothorax. No acute bony abnormality seen. No acute aortic f indings suspected. IMPRESSION: Shallow inspiration film showing right base infiltrate and/ or atelectasis and small rig ht pleural effusion. Lung parenchymal changes are not significantly different from comparison.
[2018-09-06] MEDS: TAMSULOSIN 0.4 MG SR CAP PO SCH (08:23)
[2018-09-06] MEDS: BENZTROPINE 2 MG/2 ML VIAL IV SCH ×2 (08:24→21:00)
[2018-09-06] MEDS: THIAMINE 200 MG/2 ML INJ IVP SCH (08:24)
[2018-09-06] MEDS: METOPROLOL TAR 25 MG TAB PO SCH ×3 (08:24→22:02)
[2018-09-06] MEDS: SUCRALFATE 1 GM TABLET PO SCH ×7 (08:24→22:02)
[2018-09-06] MEDS ORDERED: POTASSIUM CL SA 10 MEQ TAB PO ONE (09:00)
--- NOTE | 2018-09-06 17:15 | P.PN ---
Subjective Date of Service: 09/06/18 Chief Complaint: AMS, overdose Subjective: Improving Patient seen and examined at bedside. Caregiver at bedside. Chart reviewed and case discussed with nursing staff. Patient slept well overnight. He was evaluated by neurology last night. This morning he is a little improved. Talking warmth but still confused, still with random thought process and random conversation. He was started on benztropine since yesterday. Intermittently eating and drinking. Review of Systems 10-point ROS is otherwise unremarkable Physical Examination - Vital Signs Temperature: 99 F Blood Pressure: 154/84 Pulse: 87 Respirations: 12 Pulse Ox (%): 95 - Physical Exam General: Alert, In no apparent distress, Confused, Other (Random thought processes and random conversation) Respiratory: Clear to auscultation bilaterally, Normal air movement Cardiovascular: Regular rate/rhythm, Normal S1 S2 Gastrointestinal: Normal bowel sounds, No tenderness Musculoskeletal: No tenderness Integumentary: No rashes Neurological: Abnormal speech, Abnormal affect Assessment And Plan - Current Problems (Diagnosis) (1) Catatonia Current Visit: Yes Status: Acute Plan: Differential diagnosis does include seizure (and patient with history of epilepsy) vs drug abuse effect vs secondary to underlying psychiatric disease vs underlying medical disease including infection. - MRI negative for any acute abnormalities - He is tachycardic and tachypneic. He remains afebrile. Continue to monitor vital signs - Neurology consulted, recommendations appreciated. Continue best pain at this time. - EEG ordered, pending - called patient's primary psychiatrist, Dr. Segovia in [place]. Spoke to the nurse, Jacqui. States that patient has a diagnoses of schizophrenia. He has not really been missing any appointments. His last appointment was in March of 2018 and his next appointment was scheduled for September 08, 2018. He is currently on clonazepam 2 mg, 1 tablet t.i.d., fluoxetine 10 mg daily. Prozac was also started at his last appointment. Unsure how many medications patient is taking or not taking. I am waiting for a psychiatrist to call me back to talk further. (2) Encephalopathy Current Visit: Yes Status: Acute Plan: Likely secondary to drug overdose vs CVA versus chronic alcohol use - Continue to monitor in ICU - MRI negative for acute abnormality - Suicide precaution as pt with unknown intent. Now states that he did not take any pills and his roommate/Girlfriend is lying. - Narcan as needed - He will need [facility] eval once he is medically stable. - unsure of baseline. Patient does have a history of chronic alcohol use (3) Drug overdose Current Visit: Yes Status: Acute Qualifiers: Encounter type: initial encounter Injury intent: undetermined intent Qualified Code(s): T50.904A - Poisoning by unspecified drugs, medicaments and biological substances, undetermined, initial encounter (4) Pneumonia Current Visit: Yes Status: Acute Plan: Likely secondary to aspiration as pt with drug overdose, confusion, and altered mentation. - Continue IV antibiotics - repeat chest x-ray unchanged though afebrile and no leukocytosis anymore. Qualifiers: Pneumonia type: aspiration pneumonia Laterality: right Lung location: middle lobe of lung (5) Leucocytosis Current Visit: Yes Status: Resolved Plan: Likely secondary to pneumonia - resolved. Continue IV antibiotics (6) CLEMENCIA (acute kidney injury) Current Visit: Yes Status: Resolved Plan: Resolved.. Continue IVF. (7) Hyponatremia Current Visit: Yes Status: Resolved Plan: Resolved. Continue IVF (8) CVA (cerebral vascular accident) Onset Date: 02/18/17 Current Visit: No Status: Chronic Plan: Hx of CVA. Unsure of baseline. MRI negative for acute abnormalities. Qualifiers: CVA mechanism: unspecified Qualified Code(s): I63.9 - Cerebral infarction, unspecified (9) Seizure disorder Current Visit: No Status: Chronic Plan: EEG pending. Neurology consulted, recommendations appreciated. (10) Hypertension Current Visit: No Status: Acute Plan: Continue home medications. Qualifiers: Hypertension type: essential hypertension Qualified Code(s): I10 - Essential (primary) hypertension (11) Obesity (BMI 30.0-34.9) Current Visit: No Status: Acute - Plan DVT prophylaxis: Lovenox GI prophylaxis: None Diet: Regular Disposition: Pending symptomatic improvement and [facility] evaluation.
[2018-09-06] MEDS ORDERED: LORazepam 2 MG/ML VIAL IV ONE (23:43)
[2018-09-06] MEDS ORDERED: METOPROLOL TARTRATE 5 MG/5 ML INJ IV STA (23:43)
[2018-09-07] MEDS: PIPER/TAZO/NS 3.375gm 3.375 GM/100 ML BAG IVPB SCH ×3 (01:04→17:43)
[2018-09-07] MEDS: NA CHLORIDE 0.9% 1,000 ML IV SCH ×4 (03:17→17:43)
[2018-09-07] MEDS ORDERED: LORazepam 2 MG/ML VIAL IV ONE ×2 (05:41→18:32)
[2018-09-07] MEDS ORDERED: METOPROLOL TARTRATE 5 MG/5 ML INJ IV STA (05:42)
[2018-09-07 07:12] LABS: Magnesium 1.9 mg/dL (1.8-2.4); Potassium 3.6 mmol/L (3.5-5.1)
[2018-09-07] MEDS ORDERED: POTASSIUM 25 MEQ EFFERV TAB PO ONE (09:00)
--- NOTE | 2018-09-07 09:51 | P.PN ---
Date of Service: 09/07/18 Spoke to significant other. However, she states that they were just friends. She did tell me that he has seen a psychiatrist in the past. They are not sure if he actually had schizophrenia. He is not on any medication for the schizophrenia if that is what was diagnosed. His most recent issues have been abdominal pain. He has been getting this workup for the last 6-8 months. He has had multiple diagnostic studies including imaging studies and endoscopic procedures. He was having a lot of pain and was started on Dilaudid recently. He decided to take him all at once for which she thinks was a suicide attempt. This is unlike him. 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 However, he is antisocial and does not like to be around a lot of people. She is not aware of him hearing voices. She is not aware of any hallucinations that he has. 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 He apparently gets really bad withdrawals. We will go ahead and restart his clonazepam t.i.d.. Monitor him closely. Inpatient psych eval pending. He will probably need physical therapy eval as well.
--- NOTE | 2018-09-07 10:29 | P.PN ---
Subjective Date of Service: 09/07/18 Primary Care Provider: Saniya Chief Complaint: AMS, overdose Review of Systems is unable to be obtained (delirium) Physical Examination - Vital Signs Temperature: 98 F Blood Pressure: 142/83 Pulse: 98 Respirations: 18 Pulse Ox (%): 95 - Physical Exam General: Delirious HEENT: Atraumatic, PERRLA, EOMI Neck: Supple, JVD not distended Respiratory: Clear to auscultation bilaterally, Normal air movement Cardiovascular: Regular rate/rhythm, Normal S1 S2 Gastrointestinal: Normal bowel sounds, No tenderness Musculoskeletal: No tenderness Integumentary: No rashes Neurological: Normal speech, Normal tone, Normal affect Lymphatics: No axilla or inguinal lymphadenopathy Assessment & Plan - Problems (Diagnosis) (1) Drug overdose Current Visit: Yes Status: Acute Plan: Patient is a chronic pain pt of Dr Singh. He also gets clonazepam from his Psychiatrist. He is not alert enough to say if this was an intentional or acidental overdose. Will need to keep him on fluids and a butt. Most likely will need inpatient treatment when he becomes more alert. Qualifiers: Encounter type: initial encounter Injury intent: undetermined intent Qualified Code(s): T50.904A - Poisoning by unspecified drugs, medicaments and biological substances, undetermined, initial encounter (2) Chronic pain Current Visit: Yes Status: Acute Plan: Has been a patient of Dr. Singh's Most likely where he got the dilaudid. Will discuss with him Qualifiers: Chronic pain type: chronic pain syndrome Qualified Code(s): G89.4 - Chronic pain syndrome (3) Chronic kidney disease, stage 2 (mild) Current Visit: Yes Status: Acute Plan: stable, will monitor his creatine. (4) MGUS (monoclonal gammopathy of unknown significance) Current Visit: Yes Status: Acute Plan: following with Dr. Townsend. No need to consult at this time. (5) History of TIA (transient ischemic attack) Current Visit: No Status: Acute Plan: Will restart asa and statin when he is more alert. Discharge Plan: Psychiatry Plan to discharge in: Greater than 2 days - Code Status/Comfort Care Code Status Assessed: No Code Status: Full Code Critical Care: No Time Spent Managing Pts Care (In Minutes): 30
[2018-09-07] MEDS: clonazePAM 1 MG TAB PO SCH ×2 (10:43→20:10)
[2018-09-07] MEDS: THIAMINE 200 MG/2 ML INJ IVP SCH (10:44)
[2018-09-07] MEDS: TAMSULOSIN 0.4 MG SR CAP PO SCH (10:44)
[2018-09-07] MEDS: METOPROLOL TAR 25 MG TAB PO SCH ×2 (10:44→20:10)
[2018-09-07] MEDS: SUCRALFATE 1 GM TABLET PO SCH ×4 (10:45→20:10)
[2018-09-07] MEDS: BENZTROPINE 2 MG/2 ML VIAL IV SCH ×2 (11:25→20:11)
[2018-09-08] MEDS: PIPER/TAZO/NS 3.375gm 3.375 GM/100 ML BAG IVPB SCH ×3 (01:56→17:14)
[2018-09-08 06:17] LABS: BUN Blood Urea Nitrogen 9 mg/dL (7-18); Bicarbonate 25 mmol/L (21-32); Glucose Level 89 mg/dL (74-106); Phosphorus 2.8 mg/dL (2.5-4.9); Potassium 3.7 mmol/L (3.5-5.1); Sodium Level 144 mmol/L (136-145)
[2018-09-08] MEDS ORDERED: HYDRALAZINE HCL 20 MG/ML VIAL IV ONE (06:38)
[2018-09-08] MEDS: NA CHLORIDE 0.9% 1,000 ML IV SCH ×2 (07:39→20:25)
[2018-09-08] MEDS: clonazePAM 1 MG TAB PO SCH ×3 (07:42→20:21)
[2018-09-08] MEDS: METOPROLOL TAR 25 MG TAB PO SCH ×2 (07:42→20:20)
[2018-09-08] MEDS: TAMSULOSIN 0.4 MG SR CAP PO SCH (07:42)
[2018-09-08] MEDS: THIAMINE 200 MG/2 ML INJ IVP SCH (07:43)
[2018-09-08] MEDS: SUCRALFATE 1 GM TABLET PO SCH ×4 (07:43→20:20)
--- NOTE | 2018-09-08 08:53 | P.PN ---
Subjective Date of Service: 09/08/18 Primary Care Provider: Saniya Chief Complaint: AMS, overdose Subjective: No new changes (some improvement. speaks clearly but not appropriate answers.) Review of Systems is unable to be obtained Physical Examination - Vital Signs Temperature: 98.9 F Blood Pressure: 170/96 Pulse: 138 Respirations: 20 Pulse Ox (%): 96 - Physical Exam General: Alert, In no apparent distress HEENT: Atraumatic, PERRLA, EOMI Neck: Supple, JVD not distended Respiratory: Clear to auscultation bilaterally, Normal air movement Cardiovascular: Regular rate/rhythm, Normal S1 S2 Gastrointestinal: Normal bowel sounds, No tenderness Musculoskeletal: No tenderness Integumentary: No rashes Neurological: Normal speech, Normal tone, Normal affect Lymphatics: No axilla or inguinal lymphadenopathy Assessment & Plan - Problems (Diagnosis) (1) Drug overdose Current Visit: Yes Status: Acute Plan: Patient is a chronic pain pt of Dr Singh. He also gets clonazepam from his Psychiatrist. He is not alert enough to say if this was an intentional or acidental overdose. Will need to keep him on fluids and a butt. Most likely will need inpatient treatment when he becomes more alert. Ativan for agitation. If no improvement after 24 hours of congentin. May consider risperidone. Qualifiers: Encounter type: initial encounter Injury intent: undetermined intent Qualified Code(s): T50.904A - Poisoning by unspecified drugs, medicaments and biological substances, undetermined, initial encounter (2) Chronic pain Current Visit: Yes Status: Acute Plan: Has been a patient of Dr. Singh's Most likely where he got the dilaudid. Will discuss with him Qualifiers: Chronic pain type: chronic pain syndrome Qualified Code(s): G89.4 - Chronic pain syndrome (3) Chronic kidney disease, stage 2 (mild) Current Visit: Yes Status: Acute Plan: stable, will monitor his creatine. (4) MGUS (monoclonal gammopathy of unknown significance) Current Visit: Yes Status: Acute Plan: following with Dr. Townsend. No need to consult at this time. (5) History of TIA (transient ischemic attack) Current Visit: No Status: Acute Plan: Will restart asa and statin when he is more alert. Discharge Plan: Psychiatry Plan to discharge in: Greater than 2 days - Code Status/Comfort Care Code Status Assessed: No Physician Review: Patient Assessed, Agree with Above Assessment and Plan Critical Care: No Time Spent Managing Pts Care (In Minutes): 20
--- NOTE | 2018-09-08 08:58 | CON ---
Date of Consultation: 09/05/2018 Time: 2100. Reason: Confusion. History: This is a 57-year-old gentleman with a remote history of stroke, vague history of Behcet's, and history of chronic pain. He sees Pain Management, came to the emergency department for confusio n. Apparently he took 54 Dilaudid. Originally he was admitted on the . He was somnolent, but a rousable. Given some Narcan that seemed to help his mental status. He was admitted to the hospital, but instead of improving and resolving, the patient has not really improved with regard to his menta l state. He has the vague remote history of schizophrenia per the chart. Apparently, the patient de nied this being a suicide attempt. Brain MRI performed on the does not demonstrate any evidence of a new acute stroke. EEG is pending. He was given some IV thiamine tonight and I was called with consult, but it has not resulted in the resolution of the symptoms, although he may be minimally mor e engaged. He is not stiff or rigid. He is not having fevers. His white count is 8.5, but he has a sedimentation rate that is 105 and CRP that is 166. Consultation was requested. Past Medical History: As alluded to. Medications: Home meds: Metoprolol, Klonopin, Bentyl, baclofen, Carafate, and Dilaudid. Allergies: GABAPENTIN, DILANTIN, TEGRETOL, TYLENOL, HYDROCODONE, AND METHOTREXATE. Social History: The patient is normally independent with basic activities of daily. Family History: Noncontributory. Review of Systems: Not properly obtainable. The patient is not speaking. Physical Examination: Vital Signs: Is afebrile. Heart rate 94, respirations 22, blood pressure 141/89. GENERAL: He is not hypermobile. He is lying in the bed. He does not appear uncomfortable. He has some repetitive chewing motion and was noted by others that he had some versive head movement, eye mo vement to the left. Today tone is normal. He has some intermittent increased tone in the upper extr emities. Neck: Supple. Pupils are reactive. He has very notable persistent downgaze in primary position wit hout nystagmus that can be slightly overcome by oculocephalics. Face symmetric. Extremities: Examination of his extremities reveals that he withdraws all extremities to painful sti muli, reflexes are trace to 1/4, toes are downgoing. Pertinent Laboratory Data: Imaging as noted. Drug screen positive, opiates, benzodiazepines, and TH C. White count 8.5. Sedimentation rate, CRP noted. Renal function normal. Impression: Drug overdose, altered mental status. Plan: EEG has been ordered. I think that is a very reasonable study. We will try some IV Benadryl and see if that changes anything as he certainly has some dystonic features on exam, but oculogyric c risis in general tend to have more of a conjugate forced upward gaze deviation instead of downward. Downward gaze deviation is very difficult to do volitionally. Continue IV thiamine. Thank you for the consult. We will continue to follow with you. MARIAH Voice ID: [id number] Report ID: [id number]
[2018-09-08] MEDS: BENZTROPINE 2 MG/2 ML VIAL IV SCH (09:36)
[2018-09-08] MEDS: LORazepam 2 MG/ML VIAL IV PRN ×3 (12:15→23:28)
[2018-09-08] MEDS ORDERED: ZIPRASIDONE MESYLA 20 MG/VIAL IM ONE (17:02)
[2018-09-08] MEDS ORDERED: WATER FOR INJ,STERILE 10 ML ONE (17:02)
--- NOTE | 2018-09-08 17:22 | PN ---
Date of Progress Note: 09/08/2018 Time: 1310. Reason: Confusion, altered mental status. Interval History: The patient seems better after the Benadryl on Saturday, so he has been getting sche duled Cogentin. He is batter. He is moving all extremities. He has normal oculocephalics. He is s peaking. He is still confused and perseverates. He has a small right pleural effusion with an infil trate or atelectasis in the right lung base. Physical Examination: Vital Signs: He is afebrile. 160/91, heart rate is 123. General: He is awake. He is alert, conversant. He perseverates. He knows his name. He knows he i s in the hospital. He recognizes me. He follows simple one-step commands, but not complex commands. HEENT: Pupils are reactive. Ocular motion is full. Perez full. Face symmetric. Tongue midline. Soft palate elevates bilaterally. Extremities: Strength full. Sensation decreased distally. Reflexes 1/4. Toes are downgoing. No f [id number] ataxia. Impression: Drug overdose, altered mental status. Probable dystonic reaction, slowly improving. Plan: Change the Cogentin to p.o. continue IV thiamine in general supportive care. EEG today was no rmal. Repeat sedimentation rate and CRP in the morning. We will continue to follow with you. MARIAH Voice ID: [id number] Report ID: [id number]
[2018-09-08] MEDS: BENZTROPINE 1 MG TAB PO SCH (20:21)
[2018-09-09 05:18] LABS: Potassium 3.8 mmol/L (3.5-5.1)
[2018-09-09] MEDS: SUCRALFATE 1 GM TABLET PO SCH ×4 (08:19→20:21)
[2018-09-09] MEDS: METOPROLOL TAR 25 MG TAB PO SCH ×2 (08:19→20:21)
[2018-09-09] MEDS: TAMSULOSIN 0.4 MG SR CAP PO SCH (08:19)
[2018-09-09] MEDS: clonazePAM 1 MG TAB PO SCH ×3 (08:19→20:21)
[2018-09-09] MEDS: AMOX/K CLAV 875 MG TAB PO SCH ×2 (08:22→20:21)
[2018-09-09] MEDS: BENZTROPINE 1 MG TAB PO SCH ×2 (08:22→20:20)
[2018-09-09] MEDS: THIAMINE 200 MG/2 ML INJ IVP SCH (08:22)
[2018-09-09] MEDS ORDERED: levoFLOXacin 500 MG TAB PO SCH (09:00)
[2018-09-09] MEDS ORDERED: POTASSIUM CL SA 10 MEQ TAB PO ONE (09:00)
[2018-09-09] MEDS: LISINOPRIL 10 MG TAB PO SCH (09:11)
--- NOTE | 2018-09-09 10:26 | P.PN ---
Subjective Date of Service: 09/09/18 Primary Care Provider: Saniya Chief Complaint: AMS, overdose Subjective: Improving (more alert and answers more appropriately) Review of Systems 10-point ROS is otherwise unremarkable Gastrointestinal: Abdominal Pain Physical Examination - Vital Signs Temperature: 98.8 F Blood Pressure: 180/94 Pulse: 91 Respirations: 24 Pulse Ox (%): 97 - Physical Exam General: Alert, In no apparent distress HEENT: Atraumatic, PERRLA, EOMI Neck: Supple, JVD not distended Respiratory: Clear to auscultation bilaterally, Normal air movement Cardiovascular: Regular rate/rhythm, Normal S1 S2 Gastrointestinal: Normal bowel sounds, No tenderness Musculoskeletal: No tenderness Integumentary: No rashes Neurological: Normal speech, Normal tone, Normal affect Lymphatics: No axilla or inguinal lymphadenopathy Assessment And Plan - Current Problems (Diagnosis) (1) Drug overdose Current Visit: Yes Status: Acute Plan: Patient is a chronic pain pt of Dr Singh. He also gets clonazepam from his Psychiatrist. He is not alert enough to say if this was an intentional or acidental overdose. States he was not trying to hurt himself. Was treating his stomach pain which lead to his overdose. The patient is able to be assessed by mental health. Will see if needs inpt psych or can go home and follow up with his psychiatrist Dr. Segovia Qualifiers: Encounter type: initial encounter Injury intent: undetermined intent Qualified Code(s): T50.904A - Poisoning by unspecified drugs, medicaments and biological substances, undetermined, initial encounter (2) Chronic pain Current Visit: Yes Status: Acute Plan: Has been a patient of Dr. Singh's Most likely where he got the dilaudid. Will discuss with him Qualifiers: Chronic pain type: chronic pain syndrome Qualified Code(s): G89.4 - Chronic pain syndrome (3) Chronic kidney disease, stage 2 (mild) Current Visit: Yes Status: Acute Plan: stable, will monitor his creatine. (4) MGUS (monoclonal gammopathy of unknown significance) Current Visit: Yes Status: Acute Plan: following with Dr. Townsend. No need to consult at this time. (5) History of TIA (transient ischemic attack) Current Visit: No Status: Acute Plan: Will restart asa and statin when he is more alert. Discharge Plan: Psychiatry Plan to discharge in: 24 Hours - Code Status/Comfort Care Code Status Assessed: No Code Status: Full Code Physician Review: Patient Assessed, Agree with Above Assessment and Plan Critical Care: Yes Time Spent Managing PTS Care (In Minutes): 25
[2018-09-09] MEDS: LORazepam 2 MG/ML VIAL IV PRN ×3 (10:46→21:59)
[2018-09-09] MEDS: NA CHLORIDE 0.9% 1,000 ML IV SCH (11:19)
[2018-09-09] MEDS ORDERED: HYDRALAZINE HCL 20 MG/ML VIAL IV PRN (14:49)
[2018-09-09] MEDS: WATER FOR INJ,STERILE 10 ML IM PRN (16:58)
[2018-09-09] MEDS: ZIPRASIDONE MESYLA 20 MG/VIAL IM PRN ×2 (16:58→23:52)
[2018-09-09] MEDS ORDERED: MORPHINE 4 MG/ML SYR IV ONE (17:18)
[2018-09-10 06:38] LABS: Potassium 3.8 mmol/L (3.5-5.1)
--- NOTE | 2018-09-10 08:32 | P.PN ---
Subjective Date of Service: 09/10/18 Primary Care Provider: Saniya Chief Complaint: AMS, overdose Subjective: No new changes (Pt has been very agitated last night.) Review of Systems is unable to be obtained Physical Examination - Vital Signs Temperature: 98.8 F Blood Pressure: 152/92 Pulse: 108 Respirations: 21 Pulse Ox (%): 98 - Physical Exam General: Delirious HEENT: Atraumatic, PERRLA, EOMI Neck: Supple, JVD not distended Respiratory: Clear to auscultation bilaterally, Normal air movement Cardiovascular: Regular rate/rhythm, Normal S1 S2 Gastrointestinal: Normal bowel sounds, No tenderness Musculoskeletal: No tenderness Integumentary: No rashes Neurological: Normal speech, Normal tone, Normal affect Lymphatics: No axilla or inguinal lymphadenopathy Assessment & Plan - Problems (Diagnosis) (1) Drug overdose Current Visit: Yes Status: Acute Plan: active psychosis patient needs inpt psych. He has a POA. However not necessary for placement. We are waiting on him to get accepted to an in pt psych facility. He is not safe to discharge home Qualifiers: Encounter type: initial encounter Injury intent: undetermined intent Qualified Code(s): T50.904A - Poisoning by unspecified drugs, medicaments and biological substances, undetermined, initial encounter (2) Chronic pain Current Visit: Yes Status: Acute Plan: Has been a patient of Dr. Singh's Most likely where he got the dilaudid. Will discuss with him Qualifiers: Chronic pain type: chronic pain syndrome Qualified Code(s): G89.4 - Chronic pain syndrome (3) Chronic kidney disease, stage 2 (mild) Current Visit: Yes Status: Acute Plan: stable, will monitor his creatine. (4) MGUS (monoclonal gammopathy of unknown significance) Current Visit: Yes Status: Acute Plan: following with Dr. Townsend. No need to consult at this time. (5) History of TIA (transient ischemic attack) Current Visit: No Status: Acute Plan: Will restart asa and statin when he is more alert. Discharge Plan: Home Plan to discharge in: 48 Hours - Code Status/Comfort Care Code Status Assessed: No Physician Review: Patient Assessed, Agree with Above Assessment and Plan Critical Care: Yes Time Spent Managing Pts Care (In Minutes): 20
--- NOTE | 2018-09-10 08:55 | PN ---
Date of Progress Note: 09/09/2018 Reason: Altered mental status, dystonic reaction. Interval History: The patient is actually a little better today, but still not making good sense. T ried to leave the hospital twice, had to be restrained, given lorazepam and Geodon. He is certainly not safe to be discharged. Sedimentation rate and CRP are improved, possibly those numbers are eleva fabiola because of lobar infiltrate on the chest x-ray. He has had several complaints of abdominal pain and I suspect that he took quite a few antinausea medications along with the opioids and it is probab ly the nausea medications that were the inciting medications for the dystonic-type reaction, although those are not medications on his home med list. I think it is a reasonable assumption. Physical Examination: On exam, he is awake. He has prominent flight of ideas and he is speaking well, but nonsensically. Pupils are reactive. Ocular motion full. There is no abnormal movement. Blinks to threat. Extremi ty strength full. Sensation intact. Reflexes symmetric. Toes are downgoing. Impression: Altered mental status, drug overdose, and dystonic reaction appears to be improving. Plan: I think it is reasonable to just continue all medications, but we will decrease the Cogentin t o 0.5 mg twice daily as acute dystonia appears improved. The patient has always been somewhat eccent sunni in the office, but he is going to be transferred for psychiatric evaluation since he is clearly n ot able to make adequate decisions and is exhibiting potentially self-harmful behavior. We will continue to follow with you while he is her e. JAIME/PRASAD Voice ID: [id number] Report ID: [id number]
[2018-09-10] MEDS ORDERED: CLONIDINE 0.1 MG/PATCH TD SCH (09:00)
[2018-09-10] MEDS ORDERED: POTASSIUM CL SA 10 MEQ TAB PO ONE (09:00)
[2018-09-10] MEDS: BENZTROPINE 1 MG TAB PO SCH ×2 (09:00→20:07)
[2018-09-10] MEDS: METOPROLOL TAR 25 MG TAB PO SCH (09:08)
[2018-09-10] MEDS: LISINOPRIL 10 MG TAB PO SCH (09:08)
[2018-09-10] MEDS: TAMSULOSIN 0.4 MG SR CAP PO SCH (09:09)
[2018-09-10] MEDS: SUCRALFATE 1 GM TABLET PO SCH ×4 (09:09→20:07)
[2018-09-10] MEDS: clonazePAM 1 MG TAB PO SCH ×3 (09:09→20:07)
[2018-09-10] MEDS: THIAMINE 200 MG/2 ML INJ IVP SCH (09:09)
[2018-09-10] MEDS: AMOX/K CLAV 875 MG TAB PO SCH ×2 (09:10→20:07)
[2018-09-10] MEDS: METOPROLOL TAR 50 MG TAB PO SCH (18:40)
[2018-09-11] MEDS: LORazepam 2 MG/ML VIAL IV PRN ×2 (00:50→15:07)
[2018-09-11 05:24] LABS: Potassium 3.8 mmol/L (3.5-5.1)
[2018-09-11] MEDS ORDERED: POTASSIUM 25 MEQ EFFERV TAB PO ONE (06:00)
[2018-09-11] MEDS: THIAMINE 200 MG/2 ML INJ IVP SCH (08:30)
[2018-09-11] MEDS: TAMSULOSIN 0.4 MG SR CAP PO SCH (08:30)
[2018-09-11] MEDS: METOPROLOL TAR 50 MG TAB PO SCH ×2 (08:30→21:00)
[2018-09-11] MEDS: LISINOPRIL 10 MG TAB PO SCH (08:30)
[2018-09-11] MEDS: BENZTROPINE 1 MG TAB PO SCH (08:31)
[2018-09-11] MEDS: SUCRALFATE 1 GM TABLET PO SCH ×5 (08:31→21:00)
[2018-09-11] MEDS: AMOX/K CLAV 875 MG TAB PO SCH (08:31)
[2018-09-11] MEDS: clonazePAM 1 MG TAB PO SCH ×3 (08:31→21:00)
--- NOTE | 2018-09-11 14:34 | P.PN ---
Subjective Date of Service: 09/11/18 Primary Care Provider: Saniya Chief Complaint: AMS, overdose Physical Examination - Vital Signs Temperature: 98.5 F Blood Pressure: 131/75 Pulse: 85 Respirations: 19 Pulse Ox (%): 96 Assessment & Plan Discharge Plan: Home Plan to discharge in: 24 Hours Physician Review Additional Text: Impression: Altered mental status secondary to toxic encephalopathy related to drug overdose of pain medication Suspect Schizophrenia with acute psychosis Dystonic reaction RLL pneumonia Hypertension BPH Plan: I am taking over for Dr. Kothari(On vacation). Case discussed at length with nursing and social work. Social work in process of committing patient with the help of a iron caster. Patient is a harm to himself. He is not able to take care of himself is well. Patient not suicidal at this time. Once the commitment process is approved by a iron caster, patient can be transferred to psychiatric facility to continue to further evaluate and address. Medications reviewed. Neurology has evaluated patient for his dystonic reaction. Patient currently on Cogentin for this. Patient continues with hypertensive medication. Medication adjusted yesterday. Patient also taking BPH medication. Continue to monitor and reassess. Provide medication as needed for agitation. Will DC Augmentin as patient has completed course for right lower lobe pneumonia. Time Spent Managing Pts Care (In Minutes): 55
[2018-09-11] MEDS: ZIPRASIDONE MESYLA 20 MG/VIAL IM PRN (15:49)
[2018-09-11] MEDS: WATER FOR INJ,STERILE 10 ML IM PRN (15:50)
[2018-09-11] MEDS ORDERED: ENOXAPARIN 40 MG/0.4 ML SQ SCH (17:00)
--- NOTE | 2018-09-11 18:04 | P.DS ---
Admission Date: 09/02/18 Discharge Date: 09/11/18 Primary Care Provider: Dr. Kothari( I am covering for him) Disposition: TRANSFR TO OTHER-PSY/CD/REHAB Discharge Condition: GOOD Reason for Admission: AMS, overdose Consultations: Neurology-Dr. Kline Procedures: CXR: FINDINGS: Lung volumes are reduced compared to the prior study. Small right pleural effusion is evident. There is infiltrate and/ or atelectasis in the right base not significantly different from comparison. No new or progressive left lung field finding. Heart and vasculature are normal. No pneumothorax. No acute bony abnormality seen. No acute aortic findings suspected. IMPRESSION: Shallow inspiration film showing right base infiltrate and/ or atelectasis and small right pleural effusion. Lung parenchymal changes are not significantly different from comparison. MRI: FINDINGS: No intracranial hemorrhage, mass or acute infarction. There is no edema or shift of midline structures. No extra-axial fluid collections. Zuñiga- matter/white matter junction is preserved. Signal voids are seen as a normal finding in the major intracranial vessels. Small focus of T2 signal abnormality seen in the right frontal white matter. This is most likely a small focus of chronic ischemic change. There is no cortical edema or sulcal effacement. Ventricles are normal. No sella or supra sella abnormality. No globe or orbital content abnormality. No tonsillar ectopia. Mastoid air cells and paranasal sinuses are clear. IMPRESSION: Negative non-contrast MRI of the Brain for acute finding. No significant change back to the 2017 MRI study. Medical Problem List: Altered mental status secondary to toxic encephalopathy related to drug overdose of pain medication Suspect schizoaffective disorder with acute psychosis Dystonic reaction RLL pneumonia Hypertension BPH Brief History of Present Illness: 57-year-old male presented to the emergency room with altered mental status. Patient found to have Dilaudid overdose. Patient was admitted to ICU for further evaluation. Patient with underlying psychiatric issues. Hospital Course: Attending physician/PCP is Dr. Kothari, I am covering for him. Patient presented with altered mental status secondary to toxic encephalopathy related to drug overdose of pain medication-Dilaudid. Patient was admitted to ICU for further intervention. Poison control was called. Patient did receive Narcan with improvement. Pain medication was held. Patient apparently had taken 54 doses of Dilaudid that was given by chronic pain management. Patient did not require intubation. Dilaudid has been discontinued. Patient was positive for THC, opiates and benzodiazepines upon admission. Medically the patient continued to improve. Unfortunately patient continued to have psychiatric issues with delusions. During the course of his stay patient was seen by [facility]. Patient was not found to be suicidal but patient was found to have acute psychosis. They recommended inpatient psychiatric hospitalization. Patient was a danger to himself. Therefore arrangements were made to commit the patient due to his current mental state. This was approved by restaurant managing partner order. Patient will be transferred to psychiatric facility to continue further evaluation and treatment. Underlying diagnosis likely schizoaffective disorder with acute psychosis. Case discussed with psychiatry. Psychiatry agrees with transfer. Patient will be transferred to psychiatric inpatient facility to further evaluate. Patient currently on Klonopin 2 mg 3 times a day. Patient is medically stable for transfer. Patient with prior history of hypertension. This has remained stable. Patient continues with clonidine patch 0.1 mg every week, metoprolol 50 mg 1 pill twice daily and lisinopril 10 mg daily. Patient will continue with his medication. During the course of his stay patient was evaluated for right lower lobe pneumonia. Patient was treated. Patient has finish course of antibiotics. Patient with BPH. Patient will continue with Flomax 0.4 mg daily. Patient was seen and evaluated by neurology who has seen the patient in the past. Neurology determined patient had some dystonic reaction. Patient currently on Cogentin for this. This may be continued and further adjust by psychiatry. Vital Signs/Physical Exam: Temp Pulse Resp BP Pulse Ox 98.5 F 80 18 113/64 95 09/11/18 16:00 09/11/18 17:00 09/11/18 17:00 09/11/18 17:00 09/11/18 17:00 General: Other (Patient with delusions. Patient not making sense but medically clinically stable.) Neck: Supple Respiratory: Clear to auscultation bilaterally, Normal air movement Cardiovascular: Normal pulses, Regular rate/rhythm Laboratory Data at Discharge: WBC 5.7 K/uL (4.3-10.9) D 09/06/18 04:44 Hgb 11.2 g/dL (13.6-17.9) L 09/06/18 04:44 Hct 33.5 % (39.6-49.0) L 09/06/18 04:44 Plt Count 255 K/uL (152-406) 09/06/18 04:44 PT 11.6 SECONDS (9.5-12.5) 09/02/18 08:45 INR 0.98 09/02/18 08:45 APTT 26.6 SECONDS (24.3-36.9) 09/02/18 08:45 Sodium 141 mmol/L (136-145) 09/11/18 04:50 Potassium 3.8 mmol/L (3.5-5.1) 09/11/18 04:50 BUN 6 mg/dL (7-18) L 09/11/18 04:50 Creatinine 0.92 mg/dL (0.55-1.3) 09/11/18 04:50 Glucose 73 mg/dL (74-106) L 09/11/18 04:50 Phosphorus 2.8 mg/dL (2.5-4.9) 09/08/18 05:38 Magnesium 2.0 mg/dL (1.8-2.4) 09/08/18 05:38 Total Bilirubin 0.6 mg/dL (0.2-1.0) 09/06/18 04:58 AST 48 U/L (15-37) H 09/06/18 04:58 ALT 29 U/L (12-78) 09/06/18 04:58 Alkaline Phosphatase 84 U/L (45-117) 09/06/18 04:58 Home Medications: Baclofen 10 mg PO QID 09/02/18 Clotrimazole [Mycelex Rubi*] 10 mg PO 5XD 09/02/18 Dicyclomine [Bentyl*] 10 mg PO TID 09/02/18 Hydromorphone [Dilaudid] 4 mg PO BID 09/02/18 Metoprolol Tartrate 25 mg PO BID 09/02/18 Sucralfate [Carafate*] 1 tab PO QID 09/02/18 clonazePAM [Clonazepam] 2 mg PO TID 09/02/18 Patient Discharge Instructions: Patient be transferred to inpatient psychiatric facility to continue psychiatric evaluation and care. Diet: AHA Activity: Fall precautions Time spent managing pt's care (in minutes): 55
[2018-09-12] MEDS: WATER FOR INJ,STERILE 10 ML IM PRN (01:46)
[2018-09-12] MEDS: ZIPRASIDONE MESYLA 20 MG/VIAL IM PRN (01:46)
--- NOTE | 2018-09-12 01:51 | PN ---
Reason: Dystonic reaction and altered mental status. Interval History: The patient is better. He is more lucid. He was confused. He knows he is in the hospital. He knows my name. He still has some tangential thought processes per the nursing staff. Some paranoid ideation, where he thinks things may have been bugged. The dystonic symptoms have lar nilo resolved/resolved. We will stop the Cogentin, may be contributing some to the confusion. Physical Examination: He is awake, alert, knows he is in the hospital. Follows 2 step commands easily. Ocular motion full . Perez full. Face symmetric. Neck is supple. Extremity strength full. Slight cogwheeling at th e wrist and the elbows. He has been receiving some Geodon periodically. Sensation subjectively decr eased distally. Reflexes symmetric. Toes are downgoing. Impression: Dystonic reaction, resolved. Plan: Stop the Cogentin. He is going to be transferred possibly [facility] for a psychiatric evaluatio n, although I am not sure what will come of that. Thank you for the consult. MARIAH Voice ID: [id number] Report ID: [id number]
[2018-09-12 05:47] VITALS: BMI 23.6
[2018-09-12 06:07] LABS: Potassium 3.8 mmol/L (3.5-5.1)
[2018-09-12 06:35] LABS: Magnesium 2.1 mg/dL (1.8-2.4); Phosphorus 3.8 mg/dL (2.5-4.9)
[2018-09-12] MEDS ORDERED: POTASSIUM 25 MEQ EFFERV TAB PO ONE (06:38)
[2018-09-12 06:42] VITALS: TEMP 98.6
[2018-09-12] MEDS: SUCRALFATE 1 GM TABLET PO SCH ×2 (09:00→09:06)
[2018-09-12] MEDS: THIAMINE 200 MG/2 ML INJ IVP SCH (09:00)
[2018-09-12] MEDS: clonazePAM 1 MG TAB PO SCH (09:06)
[2018-09-12] MEDS: METOPROLOL TAR 50 MG TAB PO SCH (09:06)
[2018-09-12] MEDS: TAMSULOSIN 0.4 MG SR CAP PO SCH (09:06)
[2018-09-12] MEDS: LISINOPRIL 10 MG TAB PO SCH (09:06)
[2018-09-12 09:07] VITALS: BP 166/81
[2018-09-12 09:58] VITALS: O2SAT 99
--- NOTE | 2018-09-15 15:17 | EEG ---
CHART: [id number] TEST ID#: [id number] DATE OF STUDY: 09/08/2018 THE EEG WAS RECORDED PORTABLE IN THE PATIENTS ROOM ON A 17 CHANNEL MACHINE. ELECTRODES WERE APPLIED IN THE USUAL MANNER USING THE INTERNATIONAL 10-20 SYSTEM. THE WAKING BACKGROUND RHYTHM IN THIS RECORD CONSISTS OF WELL DEVELOPED AND WELL ORGANIZED WAVES OF UP TO 10 HZ., WHICH ATTENUATE NORMALLY WITH EYE OPENING. EPISODES OF BODY MOVEMENT ARE NOT ASSOCIATED WITH ANY CHANGES IN THE ON GOING EEG. IN DROWSINESS THE BACKGROUND DROPS TO 9 HZ. THERE ARE NO FOCAL OR LATERALIZING FEATURES. NO EPILEPTIFORM ACTIVITY APPEARS. SLEEP DID NOT OCCUR. HYPERVENTILATION WAS NOT PERFORMED. PHOTIC STIMULATION PRODUCED GOOD DRIVING BILATERALLY. IMPRESSION: NORMAL EEG FOR THE AGE OF THE PATIENT IN WAKE AND DROWSINESS.
== END 2018-09-12 09:24 | DRG 917 ==
LOC: ER 08:11 → ERHOLD 17:38 → 3RD-ICU 18:14
PROVIDERS: ADMIT Internal Medicine; ATTEND Internal Medicine
DX: T40.2X1A Poisoning by other opioids, accidental (unintentional), initial encounter (principal); G92 Toxic encephalopathy; J69.0 Pneumonitis due to inhalation of food and vomit; N17.9 Acute kidney failure, unspecified; E87.1 Hypo-osmolality and hyponatremia; F25.9 Schizoaffective disorder, unspecified; G89.4 Chronic pain syndrome; G40.909 Epilepsy, unspecified, not intractable, without status epilepticus; I12.9 Hypertensive chronic kidney disease with stage 1 through stage 4 chronic kidney disease, or unspecified chronic kidney disease; N18.2 Chronic kidney disease, stage 2 (mild); D47.2 Monoclonal gammopathy; N40.0 Benign prostatic hyperplasia without lower urinary tract symptoms; E66.9 Obesity, unspecified; Z68.30 Body mass index [BMI] 30.0-30.9, adult; Z86.73 Personal history of transient ischemic attack (TIA), and cerebral infarction without residual deficits
CPT/HCPCS: 36415; 51702; 70450; 70551; 71045; 80048; 80053; 80076; 80307; 80320; 80329; 81003; 83605; 83735; 84100; 84145; 85025; 85610; 85652; 85730; 86140; 87040; 93005; 95816; 96361; 96374; 96375; 99291; 99292; J0360; J0515; J0696; J1650; J2310; J2543; J3411; J3475; J3486; J7030

== ENCOUNTER 2023-09-11 16:53 | Emergency (ER) | payer OTHER ==
[2023-09-11 17:35] LABS: Absolute Lymphocytes (CBC) 0.7 K/uL (0.7-4.9); Absolute Monocytes 0.4 K/uL (0.1-1.3); Absolute Neutrophil 3.9 K/uL (1.8-8.0); Basophils % 0.3 % (0-1.3); Eosinophils % 0.6 % (0-4.4); Hematocrit 36.4 % (39.6-49.0); Hemoglobin 12.2 g/dL (13.6-17.9); Lymphocytes % 14.4 % (15.3-44.8); MCHC 33.5 g/dL (32.0-36.0); MCV 95.6 fL (80-100); MPV 7.4 fL (7.6-11.3); Neutrophils % 76.7 % (41.7-73.7); Nucleated Red Blood Cells % 0.1 % (0-0); Platelets 276 thou/uL (152-406); RBC Red Blood Cell Count 3.81 M/uL (4.33-5.43); Red Cell Distribution Width 12.7 % (12.1-15.2)
[2023-09-11 17:39] LABS: PT Prothrombin Time 12.3 SECONDS (9.4-12.5); PTT, Activated Partial Thromb 21.9 SECONDS (24.3-36.9); Protime INR 1.12
[2023-09-11 17:46] LABS: Anion Gap 7.9 mEq/L (5.0-15.0); Potassium 3.9 mEq/L (3.5-5.1)
--- NOTE | 2023-09-11 18:03 | RAD REPORT ---
EXAM DESCRIPTION: CT - Head C Spine Cap Wo Con - 09/11/2023 5:43 pm CLINICAL HISTORY: Trauma, head and neck injury. Chest, abdomen and pelvis pain. fall, head injury COMPARISON: Thorax Wo Con dated 01/01/2019; Gastric Emptying Study dated 11/01/2018; Ct Skull/Thigh d ated 07/10/2018 TECHNIQUE: CT head without contrast. CT cervical spine without contrast with coronal and sagittal reformatted images. CT chest, abdomen and pelvis without contrast with coronal and sagittal reformatted images of the [facility]. All CT scans are performed using dose optimization technique as appropriate and may include automated exposure control or mA/KV adjustment according to patient size. FINDINGS: CT HEAD WITHOUT CONTRAST: No intracranial hemorrhage, hydrocephalus or extra-axial fluid collection. No areas of brain edema o r midline shift. Opacified left maxillary sinus. Scattered ethmoid air cells are opacified. The calvarium is intact. CT CERVICAL SPINE WITHOUT CONTRAST: No fracture or subluxation. The prevertebral soft tissues are normal in thickness.Multilevel degener ative changes are present in the spine. Varying degrees of neural foraminal narrowing noted bilateral ly. No high-grade central spinal stenosis. CT CHEST, ABDOMEN, PELVIS WITHOUT CONTRAST: NOTE: Lack of contrast is a significant limitation in the assessment of trauma related findings. Spec ifically, solid organ, vascular and bowel evaluation is significantly limited. Somewhat lobular 5.4 x 3.7 cm mass in the right lower lobe.No pneumothorax or pericardial/pleural flu id. Coronary artery calcifications. Aortic atherosclerosis. No evidence of intra-abdominal visceral injury, free fluid or free air is seen within the above detai led limitations. Cholecystectomy. Moderate stool. Aortic atherosclerosis. No concerning pelvic findings. No fractures. IMPRESSION: 1. No acute findings within the chest. Masslike consolidative process in the right lower lobe has been seen since at least 01/01/2019 but has increased in size. This could reflect a round a telectasis. Given the change in size, consider repeat PET/CT. 2. No acute findings within the abdomen or pelvis. 3. No acute intracranial abnormality. 4. No acute fracture traumatic malalignment cervical spine .
[2023-09-11 18:41] LABS: Specific Gravity 1.007 (1.005-1.030); Urine Bilirubin NEGATIVE (Negative); Urine Blood Negative (Negative); Urine Clarity Clear (Clear); Urine Color Light-Yellow (Yellow); Urine Glucose NEGATIVE (Negative); Urine Ketones NEGATIVE (Negative); Urine Microscopic Reflex YN NO UMIC; Urine Nitrite NEGATIVE (Negative); Urine Protein NEGATIVE (Negative); Urine Urobilinogen Normal (Normal)
--- NOTE | 2023-09-11 18:54 | EDPHYS ---
Physician Documentation [facility] Name: Tomi Sharp Age: 62 yrs Sex: Male : 1960 Arrival Date: 09/11/2023 Time: 16:53 Bed 6 Private MD: ED Physician El Lo HPI: 09/10 17:24 This 62 yrs old Male presents to ER via EMS with complaints of Fall Injury. rn 17:24 Details of fall: The patient fell from an upright position. Onset: The symptoms/episode rn began/occurred just prior to arrival. Associated injuries: The patient sustained injury to the head. Severity of symptoms: At their worst the symptoms were mild, in the emergency department the symptoms are unchanged. The patient has experienced similar episodes in the past. EMS reports spouse called 911 after her to fall in the home, patient was awake, signs of injury to the forehead, denies any other focal pain. Patient reports multiple falls recently without serious injuries. Denies recent infection or fever. No vomiting or diarrhea. No changes in medication.. Historical: - Allergies: 17:05 Dilantin; ph 17:05 METHOTREXATE AND DERIVATIVES; ph 17:05 Neurontin; ph 17:05 Tegretol; ph - PMHx: 17:05 Chronic pain; CVA; enlarged prostate; Hypertension; Seizures; stage 3 renal disease; ph TIA; - Family history:: not pertinent. - Hospitalizations: : No recent hospitalization is reported. ROS: 17:24 Constitutional: Negative for fever, chills, and weight loss, Eyes: Negative for injury, rn pain, redness, and discharge, Neck: Negative for injury, pain, and swelling, Cardiovascular: Negative for chest pain, palpitations, and edema, Respiratory: Negative for shortness of breath, cough, wheezing, and pleuritic chest pain, Abdomen/GI: Negative for abdominal pain, nausea, vomiting, diarrhea, and constipation, Back: Negative for injury and pain, : Negative for injury, bleeding, discharge, and swelling, MS/Extremity: Negative for injury and deformity, Skin: Negative for injury, rash, and discoloration, Neuro: Positive for generalized weakness and feeling lightheaded Exam: 17:24 Constitutional: This is a well developed, well nourished patient who is awake, alert, rn and in no acute distress. Head/Face: Abrasion to mid lower forehead and nasal bridge Eyes: Pupils equal round and reactive to light, extra-ocular motions intact. Lids and lashes normal. Conjunctiva and sclera are non-icteric and not injected. Cornea within normal limits. Periorbital areas with no swelling, redness, or edema. ENT: Dry mucous membranes, no oral trauma noted Neck: Patient in c-collar, no midline tenderness Chest/axilla: Normal chest wall appearance and motion. Nontender with no deformity. No lesions are appreciated. Cardiovascular: Regular rate and rhythm. No pulse deficits. Respiratory: No increased work of breathing, no retractions or nasal flaring. Abdomen/GI: Soft, non-tender MS/ Extremity: Pulses equal, no cyanosis. Neurovascular intact. Full, normal range of motion. Equal circumference. Neuro: Awake and alert, GCS 15. Motor strength 5/5 in all extremities. Sensory grossly intact. Cerebellar exam normal. Vital Signs: 17:12 BP 115 / 64; Pulse 75; Resp 18; Temp 97.5; Pulse Ox 94% on R/A; Weight 95.25 kg; Height ph 5 ft. 11 in. ; 19:57 BP 118 / 66; Pulse 69; Resp 17 S; Pulse Ox 95% on R/A; ha1 17:12 Body Mass Index 29.29 (95.25 kg, 180.34 cm) ph N[place] Coma Score: 17:12 Eye Response: spontaneous(4). Motor Response: obeys commands(6). Verbal Response: ph confused(4). Total: 14. Trauma Score (Adult): 17:12 Eye Response: spontaneous(1); Verbal Response: confused(1); Motor Response: obeys ph commands(2); Systolic BP: > 89 mm Hg(4); Respiratory Rate: 10 to 29 per min(4); [place] Score: 14; Trauma Score: 12 MDM: 16:57 Patient medically screened. rn 18:50 Differential diagnosis: abrasion, closed head injury, contusion, fracture, Vertigo, rn weakness, dehydration. 18:50 Data reviewed: vital signs, nurses notes, lab test result(s), radiologic studies, CT rn scan, and as a result, I will discharge patient. Consideration of Admission/Observation Escalation of care including admission/observation considered. Admission considered due to dizzy spells and fall despite normal workup here. Discussed possibility of admission with patient and does not want to be admitted, reports intermittent dizzy spells for a long time, reports gets dizzy when he turns certain ways and has been going on for some time now. Patient wants to go home and understands risks of going home. Also discussed chest findings and need for follow-up to rule out cancer. Care significantly affected by the following chronic conditions: CVA, hypertension. Counseling: I had a detailed discussion with the patient and/or guardian regarding the historical points, exam findings, and any diagnostic results supporting the discharge/admit diagnosis, lab results, radiology results, the need for outpatient follow up, to return to the emergency department if symptoms worsen or persist or if there are any questions or concerns that arise at home. Response to treatment: the patient's symptoms have markedly improved after treatment, and as a result, I will discharge patient. Special discussion: I discussed with the patient/guardian in detail that at this point there is no indication for admission to the hospital. It is understood, however, that if the symptoms persist or worsen the patient needs to return immediately for re-evaluation. ED course: Patient able to stand and urinate on his own power. No acute findings in workup. Recommended admission to hospital for observation, patient declines and wants to go home.. 09/10 17:05 Order name: Basic Metabolic Panel; Complete Time: 17:50 rn 09/10 17:05 Order name: CBC with Diff; Complete Time: 17:50 rn 09/10 17:05 Order name: Urinalysis w/ reflexes; Complete Time: 18:46 rn 09/10 17:05 Order name: Protime (+inr); Complete Time: 17:50 rn 09/10 17:05 Order name: Ptt, Activated; Complete Time: 17:50 rn 09/10 17:05 Order name: CT Traumagram (Head C Spine CAP wo con); Complete Time: 18:13 rn 09/10 17:05 Order name: Labs collected and sent; Complete Time: 17:20 rn Administered Medications: 17:20 Drug: NS 0.9% IV 1000 ml IV at 1000 ml once Route: IV; Rate: 1000 ml; Site: left hand; kc6 19:00 Follow up: Response: No adverse reaction; IV Status: Completed infusion; IV Intake: kc6 1000ml Disposition Summary: 09/11/23 18:53 Discharge Ordered Notes: Location: Home rn Problem: new rn Symptoms: have improved rn Condition: Stable rn Diagnosis - Fall on same level, unspecified rn - Repeated falls rn - Dizziness and giddiness rn - Unspecified injury of head, initial encounter rn Followup: rn - With: Private Physician - When: As needed - Reason: Recheck today's complaints, Re-evaluation by your physician Discharge Instructions: - Discharge Summary Sheet rn - Dizziness rn - Head Injury, Adult rn - Fall Prevention in the Home, Adult rn - Lung Mass rn Forms: - Medication Reconciliation Form rn - Antibiotic corporate associate attorney - Prescription Opioid Use rn - Patient Portal Instructions rn - Leadership Thank You Letter rn Signatures: Dispatcher [employer] EDMS El Lo MD MD rn Hall, Patricia, RN RN [facility], Brigida RN RN kc6 Corrections: (The following items were deleted from the chart) 17:06 17:06 BASIC METABOLIC PANEL+C.LAB.BRZ ordered. EDMS EDMS 17:06 17:06 CBC+H.LAB.BRZ ordered. EDMS EDMS 17:06 17:06 Urinalysis+U.LAB.BRZ ordered. EDMS EDMS 17:06 17:06 PROTIME (+INR)+COAG.LAB.BRZ ordered. EDMS EDMS 17:06 17:06 PTT, ACTIVATED+COAG.LAB.BRZ ordered. EDMS EDMS
--- NOTE | 2023-09-11 18:54 | ER ---
Nurse's Notes [facility] Name: Tomi Sharp Age: 62 yrs Sex: Male : 1960 Arrival Date: 09/11/2023 Time: 16:53 Bed 6 Private MD: Diagnosis: Fall on same level, unspecified;Repeated falls;Dizziness and giddiness;Unspecified injury of head, initial encounter Presentation: 09/10 17:03 Chief complaint: EMS states: Pt became dizzy and fell, unkown LOC, found by SO awake ph but unable to stand d/t weakness, when EMS arrived pt was also confused w/ BP 85 systolic, IV fluids given,last systolic BP 106, pt more alert upon arrival to ED, c-collar in place. Coronavirus screen: Vaccine status:. Ebola Screen: No symptoms or risks identified at this time. Initial Sepsis Screen: Does the patient meet any 2 criteria? No. Patient's initial sepsis screen is negative. Risk Assessment: Do you want to hurt yourself or someone else? Patient reports no desire to harm self or others. 17:03 Method Of Arrival: EMS: [facility] ph 17:13 Care prior to arrival: IV initiated. Mechanism of Injury: Fall from standing position. ph Trauma event details: Injury occurred in the [facility], Injury occurred: at home. Injury occurred: September 11, 2023. 17:13 Acuity: PADMINI 3 ph Historical: - Allergies: 17:05 Dilantin; ph 17:05 METHOTREXATE AND DERIVATIVES; ph 17:05 Neurontin; ph 17:05 Tegretol; ph - PMHx: 17:05 Chronic pain; CVA; enlarged prostate; Hypertension; Seizures; stage 3 renal disease; ph TIA; - Family history:: not pertinent. - Hospitalizations: : No recent hospitalization is reported. Screenin:20 [facility] ED Fall Risk Assessment (Adult) History of falling in the last 3 months, kc6 including since admission Yes- fall prone (multiple falls) (3 pts) Confusion or Disorientation No (0 pts) Intoxicated or Sedated No (0 pts) Impaired Gait Yes (1 pt) Mobility Assist Device Used Yes (1 pt) Altered Elimination No (0 pt) Score/Fall Risk Level 3 or more points = High Risk. Abuse screen: Denies threats or abuse. Denies injuries from another. Nutritional screening: No deficits noted. Tuberculosis screening: No symptoms or risk factors identified. Assessment: 17:20 General: Appears in no apparent distress. uncomfortable, well groomed, well developed, kc6 Behavior is calm, cooperative, appropriate for age. Neuro: Level of Consciousness is awake, alert, obeys commands, Oriented to person, place, time, situation, Appropriate for age Reports a syncopal episode weakness. Cardiovascular: Capillary refill < 3 seconds. Respiratory: Airway is patent Trachea midline Respiratory effort is even, unlabored, Respiratory pattern is regular, symmetrical. GI: No signs and/or symptoms were reported involving the gastrointestinal system. : No signs and/or symptoms were reported regarding the genitourinary system. EENT: No signs and/or symptoms were reported regarding the EENT system. Derm: Skin is healthy with good turgor, has skin tears on forehead and nose Skin is pink, warm \T\ dry. Musculoskeletal: No signs and/or symptoms reported regarding the musculoskeletal system. Circulation, motion, and sensation intact. Capillary refill < 3 seconds, Range of motion: intact in all extremities. 18:20 Reassessment: Patient appears in no apparent distress at this time. No changes from kc6 previously documented assessment. Patient and/or family updated on plan of care and expected duration. Pain level reassessed. Patient is alert, oriented x 3, equal unlabored respirations, skin warm/dry/pink. 18:53 Reassessment: d/c pending ride home. spoke with pts , states she is on her way. [facility] [phone]. 19:35 Reassessment: discharge pending due to transportation. ha1 19:57 Reassessment: Patient and/or family updated on plan of care and expected duration. Pain ha1 level reassessed. Patient is alert, oriented x 3, equal unlabored respirations, skin warm/dry/pink. Vital Signs: 17:12 BP 115 / 64; Pulse 75; Resp 18; Temp 97.5; Pulse Ox 94% on R/A; Weight 95.25 kg; Height ph 5 ft. 11 in. ; 19:57 BP 118 / 66; Pulse 69; Resp 17 S; Pulse Ox 95% on R/A; ha1 17:12 Body Mass Index 29.29 (95.25 kg, 180.34 cm) ph Behzad Coma Score: 17:12 Eye Response: spontaneous(4). Motor Response: obeys commands(6). Verbal Response: ph confused(4). Total: 14. Trauma Score (Adult): 17:12 Eye Response: spontaneous(1); Verbal Response: confused(1); Motor Response: obeys ph commands(2); Systolic BP: > 89 mm Hg(4); Respiratory Rate: 10 to 29 per min(4); Behzad Score: 14; Trauma Score: 12 ED Course: 16:56 Patient arrived in ED. ph 16:57 El Lo MD is Attending Physician. rn 17:04 Brigida Canela RN is Primary Nurse. kc6 17:06 Arm band placed on Patient placed in an exam room, on a stretcher, on cardiac technologist, ph on pulse oximetry. 17:13 Triage completed. ph 17:20 Patient has correct armband on for positive identification. Bed in low position. Call kc6 light in reach. Side rails up X2. Pulse ox on. NIBP on. Warm blanket given. 17:20 Maintain EMS IV. Dressing intact. Good blood return noted. Site clean \T\ dry. Gauge \T\ brandan 6 site: 20G L HAND. 17:44 CT Traumagram (Head C Spine CAP wo con) In Process Unspecified. EDMS 18:25 Assisted with urinal. kc6 19:00 Report given to Romeo RN \T\ Danielle Vargas RN. kc6 19:59 No provider procedures requiring assistance completed. IV discontinued, intact, ha1 bleeding controlled, No redness/swelling at site. Pressure dressing applied. Administered Medications: 17:20 Drug: NS 0.9% IV 1000 ml IV at 1000 ml once Route: IV; Rate: 1000 ml; Site: left hand; kc6 19:00 Follow up: Response: No adverse reaction; IV Status: Completed infusion; IV Intake: kc6 1000ml Intake: 19:00 IV: 1000ml; Total: 1000ml. kc6 Outcome: 18:53 Discharge ordered by . rn 19:59 Discharged to home via wheelchair, with family, ha1 19:59 Condition: stable 19:59 Discharge instructions given to patient, family, Instructed on discharge instructions, follow up and referral plans. Demonstrated understanding of instructions, follow-up care, 20:00 Discharged to home via wheelchair, with family, nadya 20:00 Condition: stable 20:00 Discharge instructions given to patient, Instructed on discharge instructions, follow up and referral plans. Demonstrated understanding of instructions, follow-up care, 20:00 Patient left the ED. jb4 Signatures: Dispatcher [employer] EDMS El Lo MD MD rn Hall, Patricia, RN RN ph Bryson, James, RN RN jb4 Danielle Vargas RN RN 1 Brigida Canela RN RN kc6
== END 2023-09-11 20:00 | disposition home or self-care (01) ==
LOC: ER 16:53
DX: S00.81XA Abrasion of other part of head, initial encounter (principal); R42 Dizziness and giddiness; W18.30XA Fall on same level, unspecified, initial encounter; R29.6 Repeated falls; Z88.8 Allergy status to other drugs, medicaments and biological substances
CPT/HCPCS: 36415; 70450; 71250; 72125; 80048; 81003; 85025; 85610; 85730; 96360; 96361; 99284

== ENCOUNTER 2024-06-18 02:13 | Emergency (ER) | payer OTHER ==
--- OUTSIDE RECORDS SUMMARY | 2024-06-18 02:17 | XMS REPORT | Continuity of Care Document ---
Author Name Unknown Address [address] [place] [address] [facility] Address [address] [place] [address] Care Team Providers Care Instructional Support Specialist Name Role Phone Nickolas Kothari Primary Care Physician [phone] Ileana Beltran Attending Clinician Unavailable Migel Donahue Attending Clinician Unavailable Nickolas Kothari Attending Clinician Unavailable RAJ ROGEL Attending Clinician Unavailable Doctor Unassigned, [place] Attending Clinician U doris Mahan MD, Rubio Attending Clinician [phone] Payers Payer Name Policy Type Policy Number Effective Date Expirati on Date Source [employer] MEDICARE O [id number] 2023 00:00:00 MEDICARE AGUSTO RICHEY [id number] 2001 00:00:00 [facility] Problems Condition Name Condition Details Condition Category Status Onset Date Resolution Date Last Treatment Date Treating Clinician Comments Source [id number] Stage 3a chronic kidney disease Problem [facility] [id number] Generalize d arthritis Problem [facility] Stroke Stroke Problem [facility] Depression Depression Problem Co mmon [facility] Anxiety Anxiety Problem [facility] [id number] Pure hyperchole sterolemia Problem [facility] Monoclonal 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) Problem [facility] [id number] Stage 2 chronic kidney disease Problem [facility] [id number] Gastroesop hageal reflux disease with esophagiti s without hemorrhage Problem [facility] [id number] Lower urinary tract symptoms (LUTS) Problem [facility] Seizure Seizure Problem [facility] [id number] Painful bladder spasm Problem [facility] Gastroesop hageal reflux disease Reflux Problem [facility] [id number] Chronic pain disorder Problem [facility] [id number] Bladder spasm Problem [facility] [id number] Other chronic pain Problem [facility] [id number] Essential (primary) hypertensi on Problem [facility] [id number] Burning mouth syndrome Problem [facility] Hypertensi ve disorder, systemic arterial (disorder) Hypertensi ve disorder, systemic arterial (disorder) Active Problem 09/26/2018 [facility] Problem Active 2018-09-26 01:00:36 Vijay Orantes Hyperlipid emia (disorder) Hyperlipid emia (disorder) Active Problem 09/26/2018 [facility] Problem Active 2018-09-26 01:00:36 Vijay Orantes Pain in upper limb (finding) Pain in upper limb (finding) Active Problem 09/26/2018 [facility] Problem Active 2018-09-26 01:00:36 Vijay Orantes Paresthesi a (finding) Paresthesi a (finding) Active Problem 09/26/2018 [facility] Problem Active 2018-09-26 01:00:36 Vijay Orantes Allergies, Adverse Reactions, Alerts Allergy Name Allergy Type Status Severity Reaction(s) Onset Date Inactive Date Treating Clinician Comments Source gabapent in gabapent in Active Vijay Orantes Dilantin Dilantin Active Vijay Orantes TEGretol TEGretol Active Vijay Orantes 5409 Drug allergy Active wiped out blood cells with 1 week [facility] gabapent in gabapent in Active hives,rashes ,itching [facility] nortript yline nortript yline Active Unknown [facility] hydromor phone hydromor phone Active Unknown [facility] phenytoi n phenytoi n Active hives,rashes ,itching [facility] oxycodon e oxycodon e Active Unknown [facility] carbamaz epine carbamaz epine Active full systemic fungal infection [facility] Social History Social Habit Start Date Stop Date Quantity Comments Source History of Tobacco Use [facility] Sex Assigned At [facility] Smoking Status Start Date Stop Date Source Tobacco smoking consumption unknown [facility] Never Smoker [facility] Social History 2017-10-01 14:43:38 Wolfgang Szymanski Medications Ordered Medication Name Filled Medication Name Start Date Stop Date Current Medication? Ordering Clinician Indication Dosage Frequency Signature (SIG) Comments Components Source Baclofen Baclofen 07-29 00:00: 00 10-27 00:00 :00 No Nini Marrero 1 tablet with food or milk [facility] Nystatin Nystatin 07-07 00:00: 00 Yes Nini Marrero TAKE 4 MILLILITER S ) [facility] Nystatin 453246 UNIT/ML Nystatin 362543 UNIT/ML 07-07 00:00: 00 No QID Nystatin 128987 UNIT/ML Metoprolol Tartrate Metoprolol Tartrate Yes Nini Marrero 1 tablet with food [facility] Vitamin D3 Vitamin D3 Yes Nini Sunshinelee 1 tablet [facility] HydrOXYzine HCl HydrOXYzine HCl Yes Nini Sunshinelee 1 tablet as needed [facility] Sulfasalazi ne Sulfasalazi ne Yes Nini Sunshinelee 1 tablet [facility] Nexium Nexium Yes Nini Marrero 1 capsule [facility] Sucralfate Sucralfate Yes Nini Marrero SHAKE WELL AND TAKE 10 ML PO FOUR TIMES DAILY. [facility] Doxepin HCl Doxepin HCl Yes Nini Elida 1 capsule at bedtime [facility] Zinc Zinc Yes Nini Eilda 1 tablet [facility] Turmeric Turmeric Yes Nini [place] as directed [facility] Quetiapine Fumarate Quetiapine Fumarate Yes Nini Elida 1 tablet at bedtime [facility] Melatonin Melatonin Yes Nini Elida 1 capsule at bedtime as needed [facility] Clonazepam Clonazepam Yes Nini [place] 1 tablet [facility] Probiotic Probiotic Yes Nini Sunshinelee not defined [facility] Alpha Lipoic Acid Alpha Lipoic Acid No Alpha Lipoic Acid Metoprolol Tartrate 25 MG Metoprolol Tartrate 25 MG No 1{table t_with_ food} BID Metoprolol Tartrate 25 MG Amitriptyli ne HCl 50 MG Amitriptyli ne HCl 50 MG No 1{table t_at_be dtime} TID Amitriptyl ine HCl 50 MG Zinc 100 MG Zinc 100 MG No 1{table t} QD Zinc 100 MG Saline Nasal [place] 0.65 % Saline Nasal [place] 0.65 % No Saline Nasal [place] 0.65 % clonazePAM 2 MG clonazePAM 2 MG No 1{table t} QD clonazePAM 2 MG Sucralfate 1 GM/10ML Sucralfate 1 GM/10ML No Sucralfate 1 GM/10ML Doxepin HCl 100 MG Doxepin HCl 100 MG No 1{capsu le_at_b edtime} QD Doxepin HCl 100 MG Zinc 100 MG Zinc 100 MG No 1{table t} QD Zinc 100 MG Amitriptyli ne HCl 50 MG Amitriptyli ne HCl 50 MG No 1{table t_at_be dtime} TID Amitriptyl ine HCl 50 MG Metoprolol Tartrate 25 MG Metoprolol Tartrate 25 MG No 1{table t_with_ food} BID Metoprolol Tartrate 25 MG Saline Nasal [place] 0.65 % Saline Nasal [place] 0.65 % No Saline Nasal [place] 0.65 % clonazePAM 2 MG clonazePAM 2 MG No 1{table t} QD clonazePAM 2 MG Alpha Lipoic Acid Alpha Lipoic Acid No Alpha Lipoic Acid Sucralfate 1 GM/10ML Sucralfate 1 GM/10ML No Sucralfate 1 GM/10ML Doxepin HCl 100 MG Doxepin HCl 100 MG No 1{capsu le_at_b edtime} QD Doxepin HCl 100 MG Saline Nasal [place] 0.65 % Saline Nasal [place] 0.65 % No Saline Nasal [place] 0.65 % Fluconazole 200 MG Fluconazole 200 MG No Fluconazol e 200 MG Sucralfate 1 GM/10ML Sucralfate 1 GM/10ML No Sucralfate 1 GM/10ML Saline Nasal [place] 0.65 % Saline Nasal [place] 0.65 % No Saline Nasal [place] 0.65 % Melatonin 10 MG Melatonin 10 MG No Melatonin 10 MG Alpha Lipoic Acid 200 MG Alpha Lipoic Acid 200 MG No Alpha Lipoic Acid 200 MG Fluconazole 200 MG Fluconazole 200 MG No Fluconazol e 200 MG Zinc 50 MG Zinc 50 MG No 1{ table t} QD Zinc 50 MG Amitriptyli ne HCl 50 MG Amitriptyli ne HCl 50 MG No 1{table t_at_be dtime} QID Amitriptyl ine HCl 50 MG Metoprolol Tartrate 25 MG Metoprolol Tartrate 25 MG No 1{table t_with_ food} QD Metoprolol Tartrate 25 MG Sucralfate 1 GM/10ML Sucralfate 1 GM/10ML No Sucralfate 1 GM/10ML Doxepin HCl 100 MG Doxepin HCl 100 MG No 1{capsu le_at_b edtime} QD Doxepin HCl 100 MG Atorvastati n Calcium 40 MG Atorvastati n Calcium 40 MG No Atorvastat in Calcium 40 MG Saline Nasal [place] 0.65 % Saline Nasal [place] 0.65 % No Saline Nasal [place] 0.65 % clonazePAM 2 MG clonazePAM 2 MG No 1{table t} QD clonazePAM 2 MG Zinc 50 MG Zinc 50 MG No 1{ table t} QD Zinc 50 MG Saline Nasal [place] 0.65 % Saline Nasal [place] 0.65 % No Saline Nasal [place] 0.65 % Atorvastati n Calcium 40 MG Atorvastati n Calcium 40 MG No Atorvastat in Calcium 40 MG Sucralfate 1 GM/10ML Sucralfate 1 GM/10ML No Sucralfate 1 GM/10ML Zinc 50 MG Zinc 50 MG No 1{ table t} QD Zinc 50 MG Alpha Lipoic Acid 200 MG Alpha Lipoic Acid 200 MG No Alpha Lipoic Acid 200 MG Metoprolol Tartrate 25 MG Metoprolol Tartrate 25 MG No 1{table t_with_ food} QD Metoprolol Tartrate 25 MG Saline Nasal [place] 0.65 % Saline Nasal [place] 0.65 % No Saline Nasal [place] 0.65 % clonazePAM 2 MG clonazePAM 2 MG No 1{table t} QD clonazePAM 2 MG Melatonin 10 MG Melatonin 10 MG No Melatonin 10 MG Fluconazole 200 MG Fluconazole 200 MG No Fluconazol e 200 MG Doxepin HCl 100 MG Doxepin HCl 100 MG No 1{capsu le_at_b edtime} QD Doxepin HCl 100 MG Amitriptyli ne HCl 50 MG Amitriptyli ne HCl 50 MG No 1{table t_at_be dtime} QID Amitriptyl ine HCl 50 MG Atorvastati n Calcium 40 MG Atorvastati n Calcium 40 MG No Atorvastat in Calcium 40 MG Sucralfate 1 GM/10ML Sucralfate 1 GM/10ML No Sucralfate 1 GM/10ML Zinc 50 MG Zinc 50 MG No 1{ table t} QD Zinc 50 MG Alpha Lipoic Acid 200 MG Alpha Lipoic Acid 200 MG No Alpha Lipoic Acid 200 MG Metoprolol Tartrate 25 MG Metoprolol Tartrate 25 MG No 1{table t_with_ food} QD Metoprolol Tartrate 25 MG Saline Nasal [place] 0.65 % Saline Nasal [place] 0.65 % No Saline Nasal [place] 0.65 % clonazePAM 2 MG clonazePAM 2 MG No 1{table t} QD clonazePAM 2 MG Melatonin 10 MG Melatonin 10 MG No Melatonin 10 MG Fluconazole 200 MG Fluconazole 200 MG No Fluconazol e 200 MG Doxepin HCl 100 MG Doxepin HCl 100 MG No 1{capsu le_at_b edtime} QD Doxepin HCl 100 MG Amitriptyli ne HCl 50 MG Amitriptyli ne HCl 50 MG No 1{table t_at_be dtime} QID Amitriptyl ine HCl 50 MG Atorvastati n Calcium 40 MG Atorvastati n Calcium 40 MG No Atorvastat in Calcium 40 MG Sucralfate 1 GM/10ML Sucralfate 1 GM/10ML No Sucralfate 1 GM/10ML Zinc 50 MG Zinc 50 MG No 1{ table t} QD Zinc 50 MG Alpha Lipoic Acid 200 MG Alpha Lipoic Acid 200 MG No Alpha Lipoic Acid 200 MG Metoprolol Tartrate 25 MG Metoprolol Tartrate 25 MG No 1{table t_with_ food} QD Metoprolol Tartrate 25 MG Saline Nasal [place] 0.65 % Saline Nasal [place] 0.65 % No Saline Nasal [place] 0.65 % clonazePAM 2 MG clonazePAM 2 MG No 1{table t} QD clonazePAM 2 MG Melatonin 10 MG Melatonin 10 MG No Melatonin 10 MG Fluconazole 200 MG Fluconazole 200 MG No Fluconazol e 200 MG Doxepin HCl 100 MG Doxepin HCl 100 MG No 1{capsu le_at_b edtime} QD Doxepin HCl 100 MG Amitriptyli ne HCl 50 MG Amitriptyli ne HCl 50 MG No 1{table t_at_be dtime} QID Amitriptyl ine HCl 50 MG Atorvastati n Calcium 40 MG Atorvastati n Calcium 40 MG No Atorvastat in Calcium 40 MG Sucralfate 1 GM/10ML Sucralfate 1 GM/10ML No Sucralfate 1 GM/10ML Zinc 50 MG Zinc 50 MG No 1{ table t} QD Zinc 50 MG Alpha Lipoic Acid 200 MG Alpha Lipoic Acid 200 MG No Alpha Lipoic Acid 200 MG Metoprolol Tartrate 25 MG Metoprolol Tartrate 25 MG No 1{table t_with_ food} QD Metoprolol Tartrate 25 MG Saline Nasal [place] 0.65 % Saline Nasal [place] 0.65 % No Saline Nasal [place] 0.65 % clonazePAM 2 MG clonazePAM 2 MG No 1{table t} QD clonazePAM 2 MG Melatonin 10 MG Melatonin 10 MG No Melatonin 10 MG Fluconazole 200 MG Fluconazole 200 MG No Fluconazol e 200 MG Doxepin HCl 100 MG Doxepin HCl 100 MG No 1{capsu le_at_b edtime} QD Doxepin HCl 100 MG Amitriptyli ne HCl 50 MG Amitriptyli ne HCl 50 MG No 1{table t_at_be dtime} QID Amitriptyl ine HCl 50 MG sulfaSALAzi ne 500 MG sulfaSALAzi ne 500 MG No 1{table t} sulfaSALAz ine 500 MG Probiotic - Probiotic - No Pr obiotic - hydrOXYzine HCl 25 MG hydrOXYzine HCl 25 MG No 1{table t_as_ne eded} TID hydrOXYzin e HCl 25 MG QUEtiapine Fumarate 300 MG QUEtiapine Fumarate 300 MG No 1{table t_at_be dtime} QD QUEtiapine Fumarate 300 MG Melatonin 5 MG Melatonin 5 MG No 1{capsu le_at_b edtime_ as_need ed} QD Melatonin 5 MG Baclofen 10 MG Baclofen 10 MG No Baclofen 10 MG NexIUM 20 MG NexIUM 20 MG No 1{capsu le} QD NexIUM 20 MG Vital Signs Vital Name Observation Time Observation Value Comments S pedrito height 2021-10-13 13:20:00 70.5 [in_i] Comm on [facility] weight 2021-10-13 13:20:00 219 [lb_av] Comm on [facility] temperature 2021-10-13 13:20:00 97.9 [degF] Com [facility] bmi 2021-10-13 13:20:00 30.98 kg/m2 Comm on [facility] oximetry 2021-10-13 13:20:00 98 % Commo n [facility] respiratory rate 2021-10-13 13:20:00 16 /min [facility] blood pressure systolic 2021-10-13 13:20:00 136 mm[Hg] [facility] blood pressure diastolic 2021-10-13 13:20:00 78 mm[Hg] [facility] height 2021-07-07 09:40:00 70.50 [in_i] Com [facility] weight 2021-07-07 09:40:00 208.6 [facility]lb[facility]av[facility] 2021-[facility]-07 09:40:00 98.3 [degF] Com [facility] bmi 2021-07-07 09:40:00 29.5 kg/m2 Commo n [facility] oximetry 2021-07-07 09:40:00 97 % Commo n [facility] respiratory rate 2021-07-07 09:40:00 16 /min Common [facility] blood pressure systolic 2021-07-07 09:40:00 138 mm[Hg] Common [facility] blood pressure diastolic 2021-07-07 09:40:00 74 mm[Hg] [facility] height 2021-07-07 10:00:00 70.50 [in_i] Com [facility] weight 2021-07-07 10:00:00 208.6 [lb_av] Co [facility] temperature 2021-07-07 10:00:00 98.3 [degF] Com [facility] bmi 2021-07-07 10:00:00 29.5 kg/m2 Commo n [facility] oximetry 2021-07-07 10:00:00 97 % Commo n [facility] respiratory rate 2021-07-07 10:00:00 16 /min [facility] blood pressure systolic 2021-07-07 10:00:00 138 mm[Hg] Common Spiri t [facility] blood pressure diastolic 2021-07-07 10:00:00 74 mm[Hg] [facility] height 2021-06-05 13:20:00 70.50 [in_i] Com [facility] weight 2021-06-05 13:20:00 203.2 [lb_av] Co mmon [facility] temperature 2021-06-05 13:20:00 97.2 [degF] Com [facility] bmi 2021-06-05 13:20:00 28.74 kg/m2 Comm on [facility] oximetry 2021-06-05 13:20:00 98 % Commo n [facility] respiratory rate 2021-06-05 13:20:00 16 /min [facility] blood pressure systolic 2021-06-05 13:20:00 107 mm[Hg] [facility] blood pressure diastolic 2021-06-05 13:20:00 66 mm[Hg] [facility] height 2020-12-28 15:00:00 70.50 [in_i] Com mon [facility] weight 2020-12-28 15:00:00 220 [lb_av] Comm on [facility] temperature 2020-12-28 15:00:00 98.6 [degF] Com mon [facility] bmi 2020-12-28 15:00:00 31.12 kg/m2 Comm on [facility] oximetry 2020-12-28 15:00:00 96 % Commo n [facility] blood pressure systolic 2020-12-28 15:00:00 97 mm[Hg] [facility] blood pressure diastolic 2020-12-28 15:00:00 65 mm[Hg] [facility] Procedures Procedure Date / Time Performed Performing Clinician Source AUTHORIZATION FOR RELEASE OF PHI 2021-10-16 05:01:00 Doctor Unassigned, [place] [facility] Encounters Start Date/Time End Date/Time Encounter Type Admission Type Attending Clinicians Care Facility Care Department Encounter ID Source 2023-11-14 07:31:00 Outpatient Ileana Beltran STLMLC STLMLC [id number] [facility] 2021-10-04 08:58:00 Outpatient Ileana Beltran STLMLC STLMLC [id number] [facility] 2021-07-05 09:19:01 Outpatient Ileana Beltran STLMLC STLMLC [id number] [facility] 2021-06-29 09:54:01 Outpatient Ileana Beltran STLMLC STLMLC [id number] [facility] 2021-06-01 13:38:00 Outpatient Ileana Beltran STLMLC STLMLC [id number] [facility] 2021-05-17 13:49:00 Outpatient Ileana Beltran STNORM STLMLC [id number] [facility] 2021-04-17 16:24:00 Outpatient Migel Donahue STLMLC STLMLC [id number] [facility] 2021-04-12 11:07:03 Outpatient Nickolas Kothari STLMLC STLMLC [id number] [facility] 2021-04-12 11:05:30 Outpatient Nickolas Kothari STLMLC STLMLC [id number] [facility] 2023-08-19 09:30:00 2023-08-19 09:30:00 Outpatient RAJ ROGEL [facility] [id number] [facility] 2023-06-18 00:00:00 2023-06-18 00:00:00 (TEL) STLMLC STLMLC [id number] [facility] 2022-11-22 00:00:00 2022-11-22 00:00:00 (TEL) STLMLC STLMLC [id number] [facility] 2022-05-01 00:00:00 2022-05-01 00:00:00 (TEL) STLMLC STLMLC [id number] [facility] 2022-01-22 00:00:00 2022-01-22 00:00:00 (TEL) STLMLC STLMLC [id number] [facility] 2021-12-04 00:00:00 2021-12-04 00:00:00 (TEL) STLMLC STLMLC [id number] [facility] 2021-11-06 00:00:00 2021-11-06 00:00:00 (TEL) STLMLC STLMLC [id number] [facility] 2021-10-16 00:00:00 2021-10-16 00:00:00 Orders Only Doctor Unassigned, [place] [facility] [id number] [facility] 2021-10-16 00:00:00 2021-10-16 00:00:00 (TEL) STLMLC STLMLC [id number] [facility] 2021-10-13 00:00:00 2021-10-13 00:00:00 OFFICE VISIT ESTAB PT LEVEL 4 STLMLC STLMLC [id number] [facility] 2021-09-05 00:00:00 2021-09-05 00:00:00 (TEL) STLMLC STLMLC [id number] [facility] 2021-08-02 00:00:00 2021-08-02 00:00:00 (TEL) STLMLC STLMLC [id number] [facility] 2021-07-28 00:00:00 2021-07-28 00:00:00 (TEL) STLMLC STLMLC [id number] [facility] 2021-07-11 00:00:00 2021-07-11 00:00:00 (TEL) STLMLC STLMLC [id number] [facility] 2021-07-10 00:00:00 2021-07-10 00:00:00 (TEL) STLMLC STLMLC [id number] [facility] 2021-07-07 00:00:00 2021-07-07 00:00:00 OFFICE VISIT ESTAB PT LEVEL 4 STLMLC STLMLC [id number] [facility] 2021-07-07 00:00:00 2021-07-07 00:00:00 SUB ANNUAL [facility] WELLNESS VISIT STLMLC STLMLC [id number] [facility] 2021-06-05 00:00:00 2021-06-05 00:00:00 OFFICE VISIT ESTAB PT LEVEL 4 STLMLC STLMLC [id number] [facility] 2020-12-28 00:00:00 2020-12-28 00:00:00 OFFICE VISIT EST PT LEVEL 3 STLMLC STLC [id number] [facility] 2020-10-04 00:00:00 2020-10-04 00:00:00 Outpatient STLMLC STLMLC [id number] [facility] 2019-07-30 13:30:00 2019-07-30 13:30:00 [facility] [id number] [facility] 2019-04-07 15:41:00 2019-04-07 15:41:00 [facility] [id number] [facility] 2019-01-09 14:41:00 2019-01-09 14:41:[address] [facility] [facility] [id number] [facility] 2018-12-12 16:26:00 2018-12-12 16:26:[address] [facility] [address] [facility] [id number] [facility] 2018-12-01 16:48:00 2018-12-01 16:48:[address] [facility] [address] [facility] [id number] [facility] 2018-11-24 11:45:00 2018-11-24 11:45:[address] [facility] [address] [facility] [id number] [facility] 2018-11-14 08:49:31 2018-11-14 23:59:00 Hospital Encounter Rubio Mahan [facility] [id number] 2018-03-21 11:45:00 2018-03-21 11:45:00 [facility] [address] [facility] [id number] [facility] 2018-02-26 14:10:00 2018-02-26 14:10:[address] [facility] [address] [facility] [id number] [facility] 2017-12-25 08:24:00 2017-12-25 08:24:[address] [facility] [address] [facility] [id number] [facility] 2017-12-17 10:25:00 2017-12-17 10:25:00 [facility] [id number] [facility] 2017-12-04 16:55:00 2017-12-04 16:55:00 [facility] [id number] [facility] 2017-11-29 08:42:00 2017-11-29 08:42:00 [facility] [id number] [facility] 2017-11-28 13:30:00 2017-11-28 13:30:00 [facility] [id number] [facility] 2017-11-08 09:45:00 2017-11-08 09:45:[address] [facility] [address] [facility] [id number] [facility] 2017-10-24 14:51:00 2017-10-24 14:51:00 [facility] [id number] [facility] 2017-10-10 13:07:00 2017-10-10 13:07:[address] [facility] [address] [facility] [id number] [facility] 2017-10-01 13:17:00 2017-10-01 13:17:[address] [facility] [address] [facility] [id number] [facility] 2017-09-23 09:27:00 2017-09-23 09:27:[address] [facility] [address] [facility] [id number] [facility] 2017-09-21 11:20:00 2017-09-21 11:20:00 [facility] [id number] [facility] 2017-09-19 14:45:00 2017-09-19 14:45:00 [facility] [id number] [facility] 2017-07-29 13:00:00 2017-07-29 13:00:00 [facility] [id number] [facility]
[2024-06-18] MEDS ORDERED: KETOROLAC 30 MG/ML INJ ONE (03:02)
[2024-06-18 03:10] LABS: Absolute Eosinophils 0.3 K/uL (0-0.5); Absolute Lymphocytes (CBC) 1.7 K/uL (0.7-4.9); Absolute Monocytes 0.5 K/uL (0.1-1.3); Absolute Neutrophil 3.4 K/uL (1.8-8.0); Basophils % 0.7 % (0-1.3); Eosinophils % 5.2 % (0-4.4); Hematocrit 38.1 % (39.6-49.0); Hemoglobin 12.9 g/dL (13.6-17.9); Lymphocytes % 28.5 % (15.3-44.8); MCH 31.1 pg (27.0-35.0); MCHC 33.8 g/dL (32.0-36.0); MCV 91.9 fL (80-100); MPV 7.6 fL (7.6-11.3); Monocytes % 8.5 % (3.3-12.3); Neutrophils % 57.1 % (41.7-73.7); Nucleated Red Blood Cells % 0.1 % (0-0); Platelets 296 thou/uL (152-406); RBC Red Blood Cell Count 4.15 M/uL (4.33-5.43); Red Cell Distribution Width 12.5 % (12.1-15.2)
[2024-06-18 04:01] LABS: Albumin 3.4 g/dL (3.4-5.0); Anion Gap 7.8 mEq/L (5.0-15.0); Bilirubin Total 0.4 mg/dL (0.2-1.0); Globulin 3.5 g/dL (2.3-3.5); Potassium 3.8 mEq/L (3.5-5.1); Protein, Total 6.9 g/dL (6.4-8.2)
--- NOTE | 2024-06-18 05:26 | RAD REPORT ---
EXAM: CT Abdomen and Pelvis With Intravenous Contrast CLINICAL HISTORY: The patient is 63 years old and is Male; Abdominal pain. TECHNIQUE: Axial computed tomography images of the abdomen and pelvis with intravenous contrast. Sagittal and coronal reformatted images were created and reviewed. This CT exam was performed using one or more of the following dose reduction techniques: automated exposure control, adjustmen t of the mA and/or kV according to patient size, and/or use of iterative reconstruction technique. COMPARISON: CT chest abdomen pelvis September 11, 2023. FINDINGS: Lung bases: Somewhat oval area of heterogeneous airspace opacification in the right lower lobe wi th volume loss, 5.5 cm. This is unchanged in size and appearance compared with the prior exam. Pleural space: Trace right pleural fluid with right pleural calcification, also unchanged. ABDOMEN: Liver: Unremarkable. No mass. Gallbladder and bile ducts: Cholecystectomy without biliary dilatation. Pancreas: No findings to suggest acute pancreatitis. No mass visualized. No ductal dilation. Spleen: Unremarkable. No splenomegaly. Adrenals: Unremarkable. No mass. Kidneys and ureters: Unremarkable. No solid mass. No hydronephrosis. Stomach and bowel: Stool throughout the colon. No evidence of colitis. No small bowel dilatation or obstruction. Stomach is collapsed. PELVIS: Appendix: The appendix is not visualized. No pericecal inflammation to suggest acute appendicitis . Bladder: Unremarkable. No mass. Reproductive: Unremarkable as visualized. ABDOMEN and PELVIS: Intraperitoneal space: Unremarkable. No free air. No significant fluid collection. Bones/joints: Vertebral Schmorl's nodes. No acute fracture visualized. No dislocation. Soft tissues: Unremarkable. Vasculature: Unremarkable. No abdominal aortic aneurysm. Lymph nodes: No pathologically enlarged lymph nodes. IMPRESSION: 1. Somewhat oval area of masslike airspace opacification in the right lower lobe with volume loss, 5.5 cm. Etiology is uncertain although there is a component of atelectasis. This is unchanged in size and appearance compared with the prior exam dated September 11, 2023. Clinical correlation suggested. 2. Trace right pleural fluid with right pleural calcification, also unchanged. 3. No acute obstructive or inflammatory process identified. Normal appendix. 4. Additional non-emergent findings as above. Electronically signed by: Charo Medina MD 06/18/2024 05:22 AM CDT RP V2 Due to temporary technical issues with the [employer] reporting system, reports are being jose roberto d by the in-house radiologist without review as a courtesy to ensure prompt reporting the interpreting radiologist is fully responsible for the content of the report. Transcribed Date/Time: 06/18/2024 5:25 AM
--- NOTE | 2024-06-18 05:39 | ER ---
Nurse's Notes [facility] Name: Tomi Sharp Age: 63 yrs Sex: Male : 1960 Arrival Date: 06/18/2024 Time: 02:13 Bed 5 Private MD: Diagnosis: Constipation Presentation: 06/18 02:38 Chief complaint: Patient states: right sided abdominal pain X1 year. Coronavirus lg3 screen: Client denies travel out of the [place] in the last 14 days. At this time, the client does not indicate any symptoms associated with coronavirus-19. Ebola Screen: No symptoms or risks identified at this time. Initial Sepsis Screen: Does the patient meet any 2 criteria? No. Patient's initial sepsis screen is negative. Does the patient have a suspected source of infection? No. Patient's initial sepsis screen is negative. Risk Assessment: Do you want to hurt yourself or someone else? Patient reports no desire to harm self or others. Onset of symptoms is unknown. 02:38 Method Of Arrival: Ambulatory lg3 02:38 Acuity: PADMINI 3 lg3 Triage Assessment: 02:40 General: Appears in no apparent distress. comfortable, Behavior is calm, cooperative. lg3 Pain: Complains of pain in right upper quadrant. EENT: No deficits noted. No signs and/or symptoms were reported regarding the EENT system. Neuro: No deficits noted. Lay Agitation-Sedation Scale (RASS): 0 - Alert and Calm Level of Consciousness is awake, alert, obeys commands, Oriented to person, place, time, situation. Cardiovascular: No deficits noted. Denies chest pain, shortness of breath, Capillary refill < 3 seconds Clubbing of nail beds is absent JVD is absent Patient's skin is warm and dry. Respiratory: No deficits noted. Airway is patent Respiratory effort is even, unlabored, Respiratory pattern is regular, symmetrical. GI: No deficits noted. Abdomen is round non-distended, Reports upper abdominal pain, constipation. : No signs and/or symptoms were reported regarding the genitourinary system. Derm: No deficits noted. No signs and/or symptoms reported regarding the dermatologic system. Skin is intact, is healthy with good turgor, Skin is dry, Skin is normal, Skin temperature is warm. Musculoskeletal: No deficits noted. No signs and/or symptoms reported regarding the musculoskeletal system. Circulation, motion, and sensation intact. Range of motion: intact in all extremities. Historical: - Allergies: 02:40 Dilantin; lg3 02:40 METHOTREXATE AND DERIVATIVES; lg3 02:40 Neurontin; lg3 02:40 Tegretol; lg3 02:40 Effexor; lg3 02:40 Nortriptyline; lg3 - PMHx: 02:40 Chronic pain; CVA; enlarged prostate; Hypertension; Seizures; stage 3 renal disease; lg3 TIA; - PSHx: 02:40 Cholecystectomy; lg3 - Immunization history:: Adult Immunizations up to date. - Infectious Disease History:: Denies. - Social history:: Smoking status: Patient denies any tobacco usage or history of. Patient/guardian denies using alcohol, street drugs. - Family history:: not pertinent. Screenin:05 [facility] ED Fall Risk Assessment (Adult) History of falling in the last 3 months, lg3 including since admission No falls in past 3 months (0 pts) Confusion or Disorientation No (0 pts) Intoxicated or Sedated No (0 pts) Impaired Gait No (0 pts) Mobility Assist Device Used No (0 pt) Altered Elimination No (0 pt) Score/Fall Risk Level 0 - 2 = Low Risk Oriented to surroundings, Maintained a safe environment, Educated pt \T\ family on fall prevention, incl call for assistance when getting out of bed, Assessed \T\ reinforced patient's understanding of fall precautions. Abuse screen: Denies threats or abuse. Denies injuries from another. Nutritional screening: No deficits noted. Tuberculosis screening: No symptoms or risk factors identified. Assessment: 03:05 General: see triage assessment. lg3 04:18 Reassessment: Patient appears in no apparent distress at this time. No changes from lg3 previously documented assessment. Patient and/or family updated on plan of care and expected duration. Pain level reassessed. Patient is alert, oriented x 3, equal unlabored respirations, skin warm/dry/pink. 06:06 GI: Bowel sounds present X 4 quads. Abd is soft and non tender. kd3 Vital Signs: 02:38 BP 124 / 82; Pulse 77; Resp 16 S; Temp 98.1(O); Pulse Ox 98% ; Weight 90.72 kg (R); lg3 Height 5 ft. 11 in. (R); 04:18 BP 130 / 79; Pulse 62; Resp 16 S; Pulse Ox 97% on R/A; lg3 05:40 BP 141 / 75; Pulse 66; Resp 18; Pulse Ox 99% on R/A; kd3 02:38 Body Mass Index 27.89 (90.72 kg, 180.34 cm) lg3 ED Course: 02:17 Patient arrived in ED. gm2 02:18 Semaj Rodriguez MD is Attending Physician. rt 02:40 Triage completed. lg3 02:40 Arm band placed on right wrist. lg3 03:05 Joselin Ricks, ZAK is Primary Nurse. kd3 03:05 Patient has correct armband on for positive identification. Placed in gown. Bed in low lg3 position. Call light in reach. Side rails up X 1. Client placed on continuous cardiac and pulse oximetry monitoring. NIBP monitoring applied. Door closed. Noise minimized. Warm blanket given. Pillow given. 03:05 CBC with Diff Sent. mm11 03:05 CMP Sent. mm11 03:05 Lipase Sent. mm11 03:05 Initial lab(s) drawn, by ED staff, sent to lab. Inserted saline lock: 20 gauge in right lg3 antecubital area, using aseptic technique. Blood collected. Flushed with 10 mL NS. 03:05 Inserted saline lock: 20 gauge in right antecubital area, using aseptic technique. mm11 Blood collected. Flushed with 10 mL NS. 04:46 CT Abd/Pelvis - IV Contrast Only In Process Unspecified. EDMS 05:38 Javier Eagle MD is Referral Physician. rt 05:40 No provider procedures requiring assistance completed. kd3 06:07 Provided Education on: medications . kd3 06:07 IV discontinued, intact, bleeding controlled, No redness/swelling at site. Pressure kd3 dressing applied. Administered Medications: 03:05 Drug: TORadol - Ketorolac IVP 15 mg IVP once Route: IVP; Site: right antecubital; lg3 04:19 Follow up: Response: No adverse reaction lg3 Medication: 06:08 VIS not applicable for this client. kd3 Outcome: 05:38 Discharge ordered by . rt 06:07 Discharged to home ambulatory, kd3 06:07 Condition: stable 06:07 Discharge instructions given to patient, Instructed on discharge instructions, Demonstrated understanding of instructions, Prescriptions given X 2, 06:08 Patient left the ED. kd3 Signatures: Dispatcher [employer] EDMS Debo Perry RN RN mary3 Joselin Ricks RN RN kd3 Semaj Rodriguez MD MD rt Richa Mandujano gm2 jacek gates mm11
--- NOTE | 2024-06-18 05:39 | EDPHYS ---
Physician Documentation [facility] Name: Tomi Sharp Age: 63 yrs Sex: Male : 1960 Arrival Date: 06/18/2024 Time: 02:13 Bed 5 Private MD: ED Physician Semaj Rodriguez HPI: 06/18 05:06 This 63 yrs old Male presents to ER via Ambulatory with complaints of Abdominal Pain. rt 05:06 Patient presents to the ED with pain to the right upper quadrant of his abdomen for rt about 1 year. States that he has difficulty having bowel movements, is taking large doses of Linzess, still strains to use the restroom. States that he believes that a rib is kinking his colon. The patient denies other acute complaints at this time, symptoms are moderate in severity, no other aggravating or alleviating factors.. Historical: - Allergies: 02:40 Dilantin; lg3 02:40 METHOTREXATE AND DERIVATIVES; lg3 02:40 Neurontin; lg3 02:40 Tegretol; lg3 02:40 Effexor; lg3 02:40 Nortriptyline; lg3 - PMHx: 02:40 Chronic pain; CVA; enlarged prostate; Hypertension; Seizures; stage 3 renal disease; lg3 TIA; - PSHx: 02:40 Cholecystectomy; lg3 - Immunization history:: Adult Immunizations up to date. - Infectious Disease History:: Denies. - Social history:: Smoking status: Patient denies any tobacco usage or history of. Patient/guardian denies using alcohol, street drugs. - Family history:: not pertinent. ROS: 05:06 Constitutional: Negative for fever, chills, and weight loss, Cardiovascular: Negative rt for chest pain, palpitations, and edema, Respiratory: Negative for shortness of breath, cough, wheezing, and pleuritic chest pain, MS/Extremity: Negative for injury and deformity, Skin: Negative for injury, rash, and discoloration, Neuro: Negative for headache, weakness, numbness, tingling, and seizure, 05:06 Abdomen/GI: Positive for abdominal pain, constipation, Exam: 05:06 Constitutional: This is a well developed, well nourished patient who is awake, alert, rt and in no acute distress. Head/Face: Normocephalic, atraumatic. Chest/axilla: Normal chest wall appearance and motion. Nontender with no deformity. No lesions are appreciated. Cardiovascular: Regular rate and rhythm with a normal S1 and S2. No gallops, murmurs, or rubs. Normal PMI, no JVD. No pulse deficits. Respiratory: Lungs have equal breath sounds bilaterally, clear to auscultation and percussion. No rales, rhonchi or wheezes noted. No increased work of breathing, no retractions or nasal flaring. Skin: Warm, dry with normal turgor. Normal color with no rashes, no lesions, and no evidence of cellulitis. MS/ Extremity: Pulses equal, no cyanosis. Neurovascular intact. Full, normal range of motion. Neuro: Awake and alert, GCS 15, oriented to person, place, time, and situation. Cranial nerves II-XII grossly intact. Motor strength 5/5 in all extremities. Sensory grossly intact. Cerebellar exam normal. Normal gait. 05:06 Abdomen/GI: Mild tenderness of the/epigastric without rebound, guarding, distention, Vital Signs: 02:38 BP 124 / 82; Pulse 77; Resp 16 S; Temp 98.1(O); Pulse Ox 98% ; Weight 90.72 kg (R); lg3 Height 5 ft. 11 in. (R); 04:18 BP 130 / 79; Pulse 62; Resp 16 S; Pulse Ox 97% on R/A; lg3 05:40 BP 141 / 75; Pulse 66; Resp 18; Pulse Ox 99% on R/A; kd3 02:38 Body Mass Index 27.89 (90.72 kg, 180.34 cm) lg3 MDM: 02:38 Medical Screening Exam initiated rt 05:39 Differential Diagnosis Constipation, bowel obstruction. Data reviewed: vital signs, rt nurses notes, lab test result(s), radiologic studies. I considered the following discharge prescriptions or medication management in the emergency department Medications were administered in the Emergency Department. See MAR. Independent interpretation of the following test(s) in the Emergency Department CT Scan: My interpretation is No bowel obstruction seen on interpretation of CT scan images. Test considered but Not performed: Ultrasound Status post cholecystectomy, ultrasound is not indicated. Care significantly affected by the following chronic conditions: Hypertension. Counseling: I had a detailed discussion with the patient and/or guardian regarding the historical points, exam findings, and any diagnostic results supporting the discharge/admit diagnosis, lab results, radiology results, the need for outpatient follow up, to return to the emergency department if symptoms worsen or persist or if there are any questions or concerns that arise at home. Response to treatment: There is no appreciated change of the patient's symptoms at this time. 06/18 02:48 Order name: CBC with Diff; Complete Time: 03:50 rt 06/18 02:48 Order name: CMP; Complete Time: 04:20 rt 06/18 02:48 Order name: Lipase; Complete Time: 04:20 rt 06/18 02:48 Order name: CT Abd/Pelvis - IV Contrast Only rt 06/18 02:48 Order name: IV Saline Lock; Complete Time: 03:05 rt 06/18 02:48 Order name: Labs collected and sent; Complete Time: 03:05 rt Administered Medications: 03:05 Drug: TORadol - Ketorolac IVP 15 mg IVP once Route: IVP; Site: right antecubital; lg3 04:19 Follow up: Response: No adverse reaction lg3 Disposition Summary: 06/18/24 05:38 Discharge Ordered Notes: Location: Home rt Problem: chronic rt Symptoms: are unchanged rt Condition: Stable rt Diagnosis - Constipation rt Followup: rt - With: Javier Eagle MD - When: 2 - 3 days - Reason: Discharge Instructions: - Discharge Summary Sheet rt - Constipation, Adult rt Forms: - Medication Reconciliation Form rt - Antibiotic Education rt - Prescription Opioid Use rt - Patient Portal Instructions rt - Leadership Thank You Letter rt Prescriptions: - Colace 100 mg Oral capsule - take 1 tablet ORAL route every 12 hours; 30 tablet; Refills: 0, Product rt Selection Permitted - Lactulose 10 gram/15 mL Oral Solution - take 30 milliliters ORAL route once daily; 300 milliliter; Refills: 0, Product rt Selection Permitted Signatures: Dispatcher [employer] Debo Aldana RN RN lg3 Semaj Rodriguez MD MD rt
[2024-06-18 06:15] VITALS: TEMP 98.1
[2024-06-18 06:18] VITALS: BP 141/75; O2SAT 99
== END 2024-06-18 06:08 | disposition home or self-care (01) ==
LOC: ER 02:13
DX: K59.00 Constipation, unspecified (principal)
CPT/HCPCS: 85025; 36415; 83690; 80053; 74177; 96374; 99284; Q9967